=== PATIENT | male | born 1965 | race Caucasian/White ===

== ENCOUNTER 2017-05-09 15:38 | Inpatient (IN) | payer OTHER, MEDICAID ==
[~2017-05-09] VITALS: Ht 182.9 cm; Wt 60.9 kg
[~2017-05-09 15:38] MED LIST: ARFO15VI INH; ASCO500C2 PO; BACL-19 PO; BUDE10.22 INH; CEFD300C37 PO; DARI15TA3 PO; DIAZ5TAB4 PO; DOCU50LI PO; FAMO20TA7 PO; FURO20TA3 PO; HYDR-3138 PO; HYDR-3241 PO; HYDR5SYR PO; MULT-257 PO; PHEN125O11 PO; POTA10TA5 PO; PROM12.553 PO; PROM6.25 PEG; SODI4VIA INH; SULF1TAB24 PO
[2017-05-09] MEDS ORDERED: SODIUM CHLORIDE 0.9% 1,000 ML IV ONE ×3 (16:01→20:00)
[2017-05-09] MEDS ORDERED: ONDANSETRON 2MG/ML, 2ML ONE ×2 (16:11→18:16)
[2017-05-09] MEDS ORDERED: HYDROmorphone 1 MG/ML, 1ML ONE ×2 (16:11→17:51)
[2017-05-09] MEDS: HYDROmorphone 1 MG/ML, 1ML IVPush PRN ×2 (16:16→17:53)
[2017-05-09] MEDS ORDERED: SODIUM CHLORIDE 0.9% 1,000ML IVBOLUS ONE (16:30)
[2017-05-09] MEDS ORDERED: ONDANSETRON 2MG/ML, 2ML IVPush ONE (16:30)
[2017-05-09] MEDS ORDERED: SODIUM CHLORIDE FLUSH 10ML SYR IVF ONE (16:30)
[2017-05-09] MEDS ORDERED: HYDR473S47 GT (16:45)
[2017-05-09] MEDS ORDERED: BACL-19 PO (16:45)
[2017-05-09] MEDS ORDERED: TIOT18CA INH (16:45)
[2017-05-09] MEDS ORDERED: DOCU50LI GT (16:45)
[2017-05-09] MEDS ORDERED: ASCO500T8 PO (16:45)
[2017-05-09] MEDS ORDERED: FAMO-79 PO (16:45)
[2017-05-09] MEDS ORDERED: PHEN125O GT (16:45)
[2017-05-09] MEDS ORDERED: DIAZ5TAB PO (16:45)
[2017-05-09 16:48] LABS: HEMATOCRIT 31.8 % (39.2-51.8); HEMOGLOBIN 10.5 g/dL (13.7-18.0)
[2017-05-09 16:53] LABS: ASPARTATE AMINO TRANSFERASE 6 U/L (15-37); BLOOD UREA NITROGEN 14 mg/dL (7-18)
[2017-05-09] MEDS ORDERED: PROM25AM6 GT (17:19)
[2017-05-09] MEDS ORDERED: ARFO15VI INH (17:20)
[2017-05-09] MEDS ORDERED: CEFTRIAXONE PMX 1GM/50ML 50 ML IVPB ONE (17:30)
[2017-05-09] MEDS ORDERED: ACETAMINOPHEN 325 MG TABLET PO PRN ×2 (17:30→20:00)
[2017-05-09] MEDS ORDERED: SODIUM CHLORIDE FLUSH 10ML SYR IVF PRN ×2 (17:30→20:00)
[2017-05-09] MEDS ORDERED: ONDANSETRON 2MG/ML, 2ML IVPush PRN ×2 (17:30→20:00)
[2017-05-09] MEDS ORDERED: POLYETHYLENE GLYCOL 17 GM PACKET PO PRN ×2 (17:30→20:00)
[2017-05-09] MEDS ORDERED: OXYcodone IR 5MG TABLET PO PRN ×2 (17:30→20:00)
[2017-05-09] MEDS ORDERED: morphine SULFATE 10 MG/ML, 1ML IVPush PRN ×3 (17:30→20:30)
[2017-05-09] MEDS ORDERED: CEFTRIAXONE PMX 1GM/50ML 50 ML ONE (17:40)
[2017-05-09] MEDS ORDERED: SODIUM PHOSPHATE 20 MMOL in SODIUM CHLORIDE 0.9% 500 ML IV ONE (18:30)
[2017-05-09] MEDS ORDERED: MAGNESIUM SULFATE PMX 4GM/100M 100 ML IV ONE (18:30)
[2017-05-09] MEDS ORDERED: POTASSIUM PHOSPHATE 44 MEQ in SODIUM CHLORIDE 0.9% 500 ML IV ONE (19:00)
[2017-05-09 20:00] VITALS: BP 101/63
[2017-05-09] MEDS: HYDROmorphone 2 MG/ML, 1ML IVPush PRN (20:25)
[2017-05-09] MEDS: NS + 40MEQ KCL 1,000 ML IV SCH (20:56)
[2017-05-09] MEDS: MEROPENEM 1 GM in SODIUM CHLORIDE 0.9% 100 ML IV SCH (20:58)
[2017-05-09] MEDS ORDERED: HYDROcodone/APAP 7.5-325MG/15ML UDC GT SCH ×2 (21:00)
[2017-05-09] MEDS ORDERED: PROMETHAZINE 25 MG/ML, 1ML IM SCH (21:00)
[2017-05-09] MEDS ORDERED: FAMOTIDINE 20 MG TABLET PO SCH (21:00)
[2017-05-09] MEDS ORDERED: DIAZEPAM 5 MG TABLET PO SCH ×2 (21:00)
[2017-05-09] MEDS ORDERED: DIAZEPAM 5 MG/ML, 2ML IV SCH (21:00)
[2017-05-09] MEDS ORDERED: DIAZEPAM 5 MG/ML, 10ML VIAL IV SCH (21:00)
[2017-05-09] MEDS: IPRATROPIUM 0.5 MG/2.5 ML INHA NPPB SCH (21:01)
[2017-05-09] MEDS: DIAZEPAM 5 MG/ML, 2ML IV SCH (21:22)
[2017-05-09] MEDS: FAMOTIDINE 20 MG/2 ML IVPush SCH (21:32)
[2017-05-09] MEDS: MICAFUNGIN 100 MG in SODIUM CHLORIDE 0.9% 100 ML IV SCH (21:41)
[2017-05-09] MEDS: PROMETHAZINE 25 MG/ML, 1ML IM SCH (22:23)
[2017-05-09] MEDS: BACLOFEN 10 MG TABLET PO SCH (22:24)
[2017-05-10] MEDS: HYDROmorphone 2 MG/ML, 1ML IVPush PRN ×6 (00:11→18:34)
[2017-05-10] MEDS: IPRATROPIUM 0.5 MG/2.5 ML INHA NPPB SCH ×2 (01:52→08:00)
[2017-05-10 04:00] VITALS: BP 94/51
[2017-05-10 04:14] LABS: HEMATOCRIT 29.4 % (39.2-51.8); HEMOGLOBIN 9.6 g/dL (13.7-18.0); WHITE BLOOD COUNT 26.6 x10^3/uL (3.4-10)
[2017-05-10] MEDS: MEROPENEM 1 GM in SODIUM CHLORIDE 0.9% 100 ML IV SCH ×3 (04:20→20:39)
[2017-05-10 04:27] LABS: BLOOD UREA NITROGEN 9 mg/dL (7-18)
[2017-05-10 04:37] LABS: ASPARTATE AMINO TRANSFERASE 8 U/L (15-37)
[2017-05-10] MEDS: ARFORMOTEROL TARTRATE 15 MCG INH SCH (05:51)
[2017-05-10] MEDS: NS + 40MEQ KCL 1,000 ML IV SCH ×2 (06:06→14:57)
[2017-05-10] MEDS: PROMETHAZINE 25 MG/ML, 1ML IM SCH ×4 (06:09→21:00)
[2017-05-10] MEDS ORDERED: POTASSIUM CHLORIDE 10% 40 MEQ/30 ML UDC PO ONE (07:30)
[2017-05-10] MEDS ORDERED: PHENYTOIN 125 MG/5 ML ORAL SUSP GT SCH (09:00)
[2017-05-10] MEDS ORDERED: ASCORBIC ACID 500 MG TABLET PO SCH (09:00)
[2017-05-10] MEDS ORDERED: DOCUSATE 50 MG/5 ML, 10ML UDC GT SCH (09:00)
[2017-05-10] MEDS ORDERED: SENNA/DOCUSATE TABLET PO SCH (09:00)
[2017-05-10] MEDS ORDERED: IPRATROPIUM 0.5 MG/2.5 ML INHA NPPB SCH (09:00)
[2017-05-10] MEDS: DOCUSATE 50 MG/5 ML, 10ML UDC GT SCH (10:04)
[2017-05-10] MEDS: FAMOTIDINE 20 MG/2 ML IVPush SCH ×2 (10:04→21:28)
[2017-05-10] MEDS: BACLOFEN 10 MG TABLET PO SCH ×3 (10:04→21:28)
[2017-05-10] MEDS: ASCORBIC ACID 500 MG TABLET PO SCH (10:04)
[2017-05-10] MEDS: PHENYTOIN 125 MG/5 ML ORAL SUSP GT SCH (10:04)
[2017-05-10] MEDS: SENNA/DOCUSATE TABLET PO SCH (10:04)
[2017-05-10] MEDS: DIAZEPAM 5 MG/ML, 2ML IV SCH (10:06)
[2017-05-10] MEDS: HEPARIN 5,000 UNITS/ML, 1ML SQ SCH ×2 (10:07→18:34)
[2017-05-10] MEDS: DIAZEPAM 5 MG TABLET PO PRN (14:57)
[2017-05-10] MEDS: MICAFUNGIN 100 MG in SODIUM CHLORIDE 0.9% 100 ML IV SCH (21:28)
[2017-05-11] MEDS: NS + 40MEQ KCL 1,000 ML IV SCH ×2 (00:13→07:30)
[2017-05-11] MEDS: HYDROmorphone 2 MG/ML, 1ML IVPush PRN ×7 (00:16→21:26)
[2017-05-11] MEDS: IPRATROPIUM 0.5 MG/2.5 ML INHA NPPB PRN ×2 (00:38→08:12)
[2017-05-11] MEDS: HEPARIN 5,000 UNITS/ML, 1ML SQ SCH ×3 (02:08→18:07)
[2017-05-11 04:00] VITALS: BP 96/55
[2017-05-11] MEDS: MEROPENEM 1 GM in SODIUM CHLORIDE 0.9% 100 ML IV SCH ×3 (04:37→20:27)
[2017-05-11 05:04] LABS: HEMATOCRIT 28.9 % (39.2-51.8); HEMOGLOBIN 9.4 g/dL (13.7-18.0); WHITE BLOOD COUNT 19.7 x10^3/uL (3.4-10)
[2017-05-11 05:12] LABS: BLOOD UREA NITROGEN 7 mg/dL (7-18)
[2017-05-11] MEDS: PROMETHAZINE 25 MG/ML, 1ML IM SCH ×4 (05:51→21:00)
[2017-05-11] MEDS: HYDROcodone/APAP 7.5-325MG/15ML UDC NG PRN (08:40)
[2017-05-11] MEDS: ASCORBIC ACID 500 MG TABLET PO SCH (08:41)
[2017-05-11] MEDS: PHENYTOIN 125 MG/5 ML ORAL SUSP GT SCH (08:41)
[2017-05-11] MEDS: FAMOTIDINE 20 MG/2 ML IVPush SCH ×2 (08:41→21:26)
[2017-05-11] MEDS: SENNA/DOCUSATE TABLET PO SCH (08:41)
[2017-05-11] MEDS: BACLOFEN 10 MG TABLET PO SCH ×3 (08:41→21:26)
[2017-05-11] MEDS: DOCUSATE 50 MG/5 ML, 10ML UDC GT SCH (08:41)
[2017-05-11] MEDS: ARFORMOTEROL TARTRATE 15 MCG INH SCH (09:00)
[2017-05-11] MEDS ORDERED: SODIUM CHLORIDE 0.9%, 500ML IVBOLUS ONE ×3 (14:30→17:00)
[2017-05-11] MEDS: DIAZEPAM 5 MG TABLET PO PRN (14:58)
[2017-05-11] MEDS ORDERED: SODIUM CHLORIDE 0.9% 1,000 ML IV SCH (17:00)
[2017-05-11] MEDS: SODIUM CHLORIDE 0.9% 1,000 ML IV SCH (17:03)
[2017-05-11] MEDS: MICAFUNGIN 100 MG in SODIUM CHLORIDE 0.9% 100 ML IV SCH (21:25)
[2017-05-12] MEDS: HYDROmorphone 2 MG/ML, 1ML IVPush PRN ×7 (00:30→20:13)
[2017-05-12] MEDS: HEPARIN 5,000 UNITS/ML, 1ML SQ SCH ×3 (02:02→19:16)
[2017-05-12 04:00] VITALS: BP 104/57
[2017-05-12 04:21] LABS: HEMATOCRIT 28.4 % (39.2-51.8); HEMOGLOBIN 9.3 g/dL (13.7-18.0); WHITE BLOOD COUNT 12.3 x10^3/uL (3.4-10)
[2017-05-12 04:34] LABS: BLOOD UREA NITROGEN 5 mg/dL (7-18)
[2017-05-12] MEDS: MEROPENEM 1 GM in SODIUM CHLORIDE 0.9% 100 ML IV SCH ×2 (04:35→12:57)
[2017-05-12] MEDS: PROMETHAZINE 25 MG/ML, 1ML IM SCH ×4 (06:00→21:00)
[2017-05-12] MEDS: SODIUM CHLORIDE 0.9% 1,000 ML IV SCH ×2 (09:02→21:53)
[2017-05-12] MEDS: ARFORMOTEROL TARTRATE 15 MCG INH SCH (10:00)
[2017-05-12] MEDS: IPRATROPIUM 0.5 MG/2.5 ML INHA NPPB PRN ×2 (10:20→14:00)
[2017-05-12] MEDS: FAMOTIDINE 20 MG/2 ML IVPush SCH ×2 (10:33→21:51)
[2017-05-12] MEDS: ASCORBIC ACID 500 MG TABLET PO SCH (10:33)
[2017-05-12] MEDS: SENNA/DOCUSATE TABLET PO SCH (10:34)
[2017-05-12] MEDS: DOCUSATE 50 MG/5 ML, 10ML UDC GT SCH (10:34)
[2017-05-12] MEDS: PHENYTOIN 125 MG/5 ML ORAL SUSP GT SCH (10:34)
[2017-05-12] MEDS: BACLOFEN 10 MG TABLET PO SCH ×3 (10:34→21:51)
[2017-05-12] MEDS: CEFTRIAXONE PMX 1GM/50ML 50 ML IV SCH (16:54)
[2017-05-13] MEDS: HYDROmorphone 2 MG/ML, 1ML IVPush PRN (00:21)
[2017-05-13] MEDS: HEPARIN 5,000 UNITS/ML, 1ML SQ SCH ×3 (01:55→17:20)
[2017-05-13] MEDS: PROMETHAZINE 25 MG/ML, 1ML IM SCH ×4 (05:07→20:37)
[2017-05-13] MEDS: ARFORMOTEROL TARTRATE 15 MCG INH SCH ×2 (07:00→09:00)
[2017-05-13] MEDS: PHENYTOIN 125 MG/5 ML ORAL SUSP GT SCH (09:19)
[2017-05-13] MEDS: FLUCONAZOLE 40 MG/ML ORAL SUSP PO SCH (09:19)
[2017-05-13] MEDS: DOCUSATE 50 MG/5 ML, 10ML UDC GT SCH (09:19)
[2017-05-13] MEDS: ASCORBIC ACID 500 MG TABLET PO SCH (09:20)
[2017-05-13] MEDS: SENNA/DOCUSATE TABLET PO SCH (09:20)
[2017-05-13] MEDS: BACLOFEN 10 MG TABLET PO SCH ×3 (09:20→20:41)
[2017-05-13] MEDS: FAMOTIDINE 20 MG/2 ML IVPush SCH ×2 (09:20→20:41)
[2017-05-13] MEDS: SODIUM CHLORIDE 0.9% 1,000 ML IV SCH (09:24)
[2017-05-13] MEDS: HYDROcodone/APAP 7.5-325MG/15ML UDC NG PRN ×2 (09:47→21:30)
[2017-05-13 10:00] LABS: HEMATOCRIT 28.5 % (39.2-51.8); HEMOGLOBIN 9.4 g/dL (13.7-18.0); WHITE BLOOD COUNT 10.5 x10^3/uL (3.4-10)
[2017-05-13] MEDS: CEFTRIAXONE PMX 1GM/50ML 50 ML IV SCH (17:26)
[2017-05-14] MEDS: SODIUM CHLORIDE 0.9% 1,000 ML IV SCH ×2 (00:43→13:44)
[2017-05-14] MEDS: HEPARIN 5,000 UNITS/ML, 1ML SQ SCH ×3 (02:25→18:07)
[2017-05-14 04:31] LABS: HEMOGLOBIN 9.9 g/dL (13.7-18.0); WHITE BLOOD COUNT 10.1 x10^3/uL (3.4-10)
[2017-05-14 04:48] LABS: ASPARTATE AMINO TRANSFERASE 9 U/L (15-37); BLOOD UREA NITROGEN 7 mg/dL (7-18)
[2017-05-14] MEDS: PROMETHAZINE 25 MG/ML, 1ML IM SCH ×4 (06:00→20:09)
[2017-05-14] MEDS: SENNA/DOCUSATE TABLET PO SCH (08:04)
[2017-05-14] MEDS: PHENYTOIN 125 MG/5 ML ORAL SUSP GT SCH (09:22)
[2017-05-14] MEDS: DOCUSATE 50 MG/5 ML, 10ML UDC GT SCH (09:22)
[2017-05-14] MEDS: ASCORBIC ACID 500 MG TABLET PO SCH (09:23)
[2017-05-14] MEDS: BACLOFEN 10 MG TABLET PO SCH ×3 (09:23→20:09)
[2017-05-14] MEDS: FAMOTIDINE 20 MG/2 ML IVPush SCH ×2 (09:23→20:09)
[2017-05-14] MEDS: FLUCONAZOLE 40 MG/ML ORAL SUSP PO SCH (09:23)
[2017-05-14] MEDS: HYDROcodone/APAP 7.5-325MG/15ML UDC NG PRN ×3 (09:27→20:09)
[2017-05-14] MEDS: CEFTRIAXONE PMX 1GM/50ML 50 ML IV SCH (16:15)
[2017-05-14] MEDS: ARFORMOTEROL TARTRATE 15 MCG INH SCH (18:50)
[2017-05-15] MEDS: SODIUM CHLORIDE 0.9% 1,000 ML IV SCH ×2 (01:32→12:23)
[2017-05-15] MEDS: HYDROcodone/APAP 7.5-325MG/15ML UDC NG PRN ×4 (01:32→19:45)
[2017-05-15] MEDS: HEPARIN 5,000 UNITS/ML, 1ML SQ SCH ×3 (01:32→18:08)
[2017-05-15 04:32] LABS: HEMATOCRIT 28.2 % (39.2-51.8); HEMOGLOBIN 9.1 g/dL (13.7-18.0); WHITE BLOOD COUNT 8.9 x10^3/uL (3.4-10)
[2017-05-15 04:45] LABS: ASPARTATE AMINO TRANSFERASE 7 U/L (15-37); BLOOD UREA NITROGEN 13 mg/dL (7-18)
[2017-05-15] MEDS: PROMETHAZINE 25 MG/ML, 1ML IM SCH ×4 (05:54→21:01)
[2017-05-15] MEDS: ARFORMOTEROL TARTRATE 15 MCG INH SCH (06:43)
[2017-05-15] MEDS: BACLOFEN 10 MG TABLET PO SCH ×3 (09:12→21:06)
[2017-05-15] MEDS: FAMOTIDINE 20 MG/2 ML IVPush SCH ×2 (09:12→21:06)
[2017-05-15] MEDS: PHENYTOIN 125 MG/5 ML ORAL SUSP GT SCH (09:13)
[2017-05-15] MEDS: FLUCONAZOLE 40 MG/ML ORAL SUSP PO SCH (09:13)
[2017-05-15] MEDS: ASCORBIC ACID 500 MG TABLET PO SCH (09:14)
[2017-05-15] MEDS: SENNA/DOCUSATE TABLET PO SCH (09:14)
[2017-05-15] MEDS: DOCUSATE 50 MG/5 ML, 10ML UDC GT SCH (09:14)
[2017-05-15] MEDS: DIAZEPAM 5 MG TABLET PO PRN ×2 (12:50→22:09)
[2017-05-15] MEDS: CEFTRIAXONE PMX 1GM/50ML 50 ML IV SCH (18:06)
[2017-05-16] MEDS: HYDROcodone/APAP 7.5-325MG/15ML UDC NG PRN ×4 (00:15→20:06)
[2017-05-16] MEDS: HEPARIN 5,000 UNITS/ML, 1ML SQ SCH ×3 (02:12→16:48)
[2017-05-16] MEDS: HYDROmorphone 2 MG/ML, 1ML IVPush PRN ×3 (03:26→22:41)
[2017-05-16 06:15] LABS: HEMOGLOBIN 9.6 g/dL (13.7-18.0); WHITE BLOOD COUNT 10.7 x10^3/uL (3.4-10)
[2017-05-16] MEDS: PROMETHAZINE 25 MG/ML, 1ML IM SCH (06:22)
[2017-05-16 06:31] LABS: BLOOD UREA NITROGEN 11 mg/dL (7-18)
[2017-05-16] MEDS: FAMOTIDINE 20 MG/2 ML IVPush SCH ×2 (07:52→20:46)
[2017-05-16] MEDS: FLUCONAZOLE 40 MG/ML ORAL SUSP PO SCH (07:52)
[2017-05-16] MEDS: ASCORBIC ACID 500 MG TABLET PO SCH (07:53)
[2017-05-16] MEDS: PHENYTOIN 125 MG/5 ML ORAL SUSP GT SCH (07:53)
[2017-05-16] MEDS: BACLOFEN 10 MG TABLET PO SCH ×3 (07:53→20:46)
[2017-05-16] MEDS: DOCUSATE 50 MG/5 ML, 10ML UDC GT SCH (07:54)
[2017-05-16] MEDS: SENNA/DOCUSATE TABLET PO SCH (07:54)
[2017-05-16] MEDS: SODIUM CHLORIDE 0.9% 1,000 ML IV SCH (08:04)
[2017-05-16] MEDS ORDERED: PROMETHAZINE 25 MG/ML, 1ML IM PRN ×2 (08:30→16:00)
[2017-05-16] MEDS: ARFORMOTEROL TARTRATE 15 MCG INH SCH (09:00)
[2017-05-16] MEDS: CEFTRIAXONE PMX 1GM/50ML 50 ML IV SCH (15:47)
[2017-05-16] MEDS: DIAZEPAM 5 MG TABLET PO PRN (15:54)
[2017-05-16] MEDS ORDERED: SODIUM CHLORIDE 0.9% 1,000 ML IV SCH (16:00)
[2017-05-16] MEDS ORDERED: ACETAMINOPHEN 325 MG TABLET PO PRN (16:00)
[2017-05-16] MEDS ORDERED: morphine SULFATE 10 MG/ML, 1ML IVPush PRN (16:00)
[2017-05-16] MEDS ORDERED: ONDANSETRON 2MG/ML, 2ML IVPush PRN (16:00)
[2017-05-16] MEDS ORDERED: OXYcodone IR 5MG TABLET PO PRN (16:00)
[2017-05-17] MEDS: HEPARIN 5,000 UNITS/ML, 1ML SQ SCH ×3 (02:08→17:10)
[2017-05-17] MEDS: HYDROcodone/APAP 7.5-325MG/15ML UDC NG PRN ×3 (02:19→14:34)
[2017-05-17] MEDS: HYDROmorphone 2 MG/ML, 1ML IVPush PRN ×4 (03:48→21:03)
[2017-05-17 05:18] LABS: HEMATOCRIT 29.3 % (39.2-51.8); HEMOGLOBIN 9.6 g/dL (13.7-18.0); WHITE BLOOD COUNT 11.9 x10^3/uL (3.4-10)
[2017-05-17 05:37] LABS: BLOOD UREA NITROGEN 15 mg/dL (7-18)
[2017-05-17] MEDS: FAMOTIDINE 20 MG/2 ML IVPush SCH (08:04)
[2017-05-17] MEDS: FLUCONAZOLE 40 MG/ML ORAL SUSP PO SCH (08:04)
[2017-05-17] MEDS: BACLOFEN 10 MG TABLET PO SCH ×3 (08:04→21:43)
[2017-05-17] MEDS: ASCORBIC ACID 500 MG TABLET PO SCH (08:04)
[2017-05-17] MEDS: DOCUSATE 50 MG/5 ML, 10ML UDC GT SCH (08:04)
[2017-05-17] MEDS: PHENYTOIN 125 MG/5 ML ORAL SUSP GT SCH (08:04)
[2017-05-17] MEDS: SENNA/DOCUSATE TABLET PO SCH (08:05)
[2017-05-17] MEDS: ARFORMOTEROL TARTRATE 15 MCG INH SCH ×2 (08:45→19:45)
[2017-05-17] MEDS: FUROSEMIDE 40 MG/4 ML IV SCH ×2 (10:39→21:03)
[2017-05-17] MEDS: CEFTRIAXONE PMX 1GM/50ML 50 ML IV SCH (16:42)
[2017-05-17] MEDS: FAMOTIDINE 40 MG/5 ML ORAL SUSP PO SCH (21:03)
[2017-05-18] MEDS: HYDROmorphone 2 MG/ML, 1ML IVPush PRN ×2 (00:58→05:01)
[2017-05-18] MEDS: HEPARIN 5,000 UNITS/ML, 1ML SQ SCH ×3 (01:00→21:06)
[2017-05-18 06:11] LABS: HEMOGLOBIN 10.4 g/dL (13.7-18.0); WHITE BLOOD COUNT 13.6 x10^3/uL (3.4-10)
[2017-05-18 06:25] LABS: ASPARTATE AMINO TRANSFERASE 16 U/L (15-37); BLOOD UREA NITROGEN 16 mg/dL (7-18)
[2017-05-18] MEDS ORDERED: SODIUM CHLORIDE NASAL SPRAY 45ML BOTTLE NAS PRN (08:30)
[2017-05-18] MEDS: FUROSEMIDE 40 MG/4 ML IV SCH ×2 (09:10→21:07)
[2017-05-18] MEDS: METHYLNALTREXONE 12 MG/0.6 ML SQ SCH (09:12)
[2017-05-18] MEDS: BACLOFEN 10 MG TABLET PO SCH ×3 (09:29→21:06)
[2017-05-18] MEDS: ASCORBIC ACID 500 MG TABLET PO SCH (09:29)
[2017-05-18] MEDS: FLUCONAZOLE 40 MG/ML ORAL SUSP PO SCH (09:30)
[2017-05-18] MEDS: FAMOTIDINE 40 MG/5 ML ORAL SUSP PO SCH ×2 (09:30→21:06)
[2017-05-18] MEDS: PHENYTOIN 125 MG/5 ML ORAL SUSP GT SCH (09:30)
[2017-05-18] MEDS: DOCUSATE 50 MG/5 ML, 10ML UDC GT SCH (09:30)
[2017-05-18] MEDS: SENNA/DOCUSATE TABLET PO SCH (09:32)
[2017-05-18] MEDS: HYDROcodone/APAP 7.5-325MG/15ML UDC NG PRN ×2 (09:35→21:06)
[2017-05-18] MEDS: ARFORMOTEROL TARTRATE 15 MCG INH SCH ×2 (11:20→21:05)
[2017-05-18] MEDS: IPRATROPIUM 0.5 MG/2.5 ML INHA NPPB PRN ×2 (12:00→16:16)
[2017-05-18] MEDS: CEFTRIAXONE PMX 1GM/50ML 50 ML IV SCH (16:14)
[2017-05-19] MEDS: HEPARIN 5,000 UNITS/ML, 1ML SQ SCH ×3 (05:03→20:31)
[2017-05-19] MEDS: IPRATROPIUM 0.5 MG/2.5 ML INHA NPPB PRN ×2 (07:10→12:40)
[2017-05-19] MEDS: FAMOTIDINE 40 MG/5 ML ORAL SUSP PO SCH ×2 (07:42→20:31)
[2017-05-19] MEDS: FLUCONAZOLE 40 MG/ML ORAL SUSP PO SCH (07:42)
[2017-05-19] MEDS: SENNA/DOCUSATE TABLET PO SCH (07:42)
[2017-05-19] MEDS: BACLOFEN 10 MG TABLET PO SCH ×3 (07:42→20:32)
[2017-05-19] MEDS: ASCORBIC ACID 500 MG TABLET PO SCH (07:43)
[2017-05-19] MEDS: PHENYTOIN 125 MG/5 ML ORAL SUSP GT SCH (07:43)
[2017-05-19] MEDS: METHYLNALTREXONE 12 MG/0.6 ML SQ SCH (07:43)
[2017-05-19] MEDS: DOCUSATE 50 MG/5 ML, 10ML UDC GT SCH (07:43)
[2017-05-19] MEDS: ARFORMOTEROL TARTRATE 15 MCG INH SCH ×2 (07:46→18:00)
[2017-05-19] MEDS: HYDROcodone/APAP 7.5-325MG/15ML UDC NG PRN ×3 (07:54→20:32)
[2017-05-19] MEDS: DIAZEPAM 5 MG TABLET PO PRN (12:03)
[2017-05-19] MEDS: CEFTRIAXONE PMX 1GM/50ML 50 ML IV SCH (15:41)
[2017-05-20] MEDS: HYDROcodone/APAP 7.5-325MG/15ML UDC NG PRN ×3 (02:55→19:30)
[2017-05-20] MEDS: HEPARIN 5,000 UNITS/ML, 1ML SQ SCH ×3 (05:46→20:18)
[2017-05-20] MEDS: DIAZEPAM 5 MG TABLET PO PRN (05:46)
[2017-05-20] MEDS: DOCUSATE 50 MG/5 ML, 10ML UDC GT SCH (07:52)
[2017-05-20] MEDS: BACLOFEN 10 MG TABLET PO SCH ×3 (07:52→20:18)
[2017-05-20] MEDS: FAMOTIDINE 40 MG/5 ML ORAL SUSP PO SCH ×2 (07:52→20:19)
[2017-05-20] MEDS: FLUCONAZOLE 40 MG/ML ORAL SUSP PO SCH (07:52)
[2017-05-20] MEDS: PHENYTOIN 125 MG/5 ML ORAL SUSP GT SCH (07:52)
[2017-05-20] MEDS: SENNA/DOCUSATE TABLET PO SCH (07:53)
[2017-05-20] MEDS: ASCORBIC ACID 500 MG TABLET PO SCH (07:53)
[2017-05-20] MEDS: METHYLNALTREXONE 12 MG/0.6 ML SQ SCH (07:54)
[2017-05-20 08:42] LABS: HEMATOCRIT 32.5 % (39.2-51.8); HEMOGLOBIN 10.6 g/dL (13.7-18.0); WHITE BLOOD COUNT 12.5 x10^3/uL (3.4-10)
[2017-05-20 08:55] LABS: BLOOD UREA NITROGEN 25 mg/dL (7-18)
[2017-05-20] MEDS: ARFORMOTEROL TARTRATE 15 MCG INH SCH ×2 (09:00→21:00)
[2017-05-20] MEDS: CEFTRIAXONE PMX 1GM/50ML 50 ML IV SCH (17:01)
[2017-05-21] MEDS: HYDROcodone/APAP 7.5-325MG/15ML UDC NG PRN ×2 (01:46→08:40)
[2017-05-21] MEDS: HEPARIN 5,000 UNITS/ML, 1ML SQ SCH ×2 (04:58→13:00)
[2017-05-21] MEDS: ARFORMOTEROL TARTRATE 15 MCG INH SCH (09:00)
[2017-05-21] MEDS ORDERED: CEFD250S26 PO (09:49)
[2017-05-21] MEDS: FAMOTIDINE 40 MG/5 ML ORAL SUSP PO SCH (10:49)
[2017-05-21] MEDS: DOCUSATE 50 MG/5 ML, 10ML UDC GT SCH (10:49)
[2017-05-21] MEDS: FLUCONAZOLE 40 MG/ML ORAL SUSP PO SCH (10:50)
[2017-05-21] MEDS: BACLOFEN 10 MG TABLET PO SCH (10:50)
[2017-05-21] MEDS: ASCORBIC ACID 500 MG TABLET PO SCH (10:50)
[2017-05-21] MEDS: SENNA/DOCUSATE TABLET PO SCH (10:50)
[2017-05-21] MEDS: PHENYTOIN 125 MG/5 ML ORAL SUSP GT SCH (10:51)
== END 2017-05-21 13:17 | disposition home or self-care (01) | DRG 870 ==
LOC: MERGE 15:38 → ED 18:00 → EDIP 18:30 → CCU 19:33
PROVIDERS: ADMIT Internal Medicine; ATTEND Internal Medicine
PROC: 5A1955Z Respiratory Ventilation, Greater than 96 Consecutive Hours (ICD-10-PCS; principal; 2017-05-13)
PROC: 0T9B70Z Drainage of Bladder with Drainage Device, Via Natural or Artificial Opening (ICD-10-PCS; 2017-05-13)
DX: A41.9 Sepsis, unspecified organism (principal); J96.20 Acute and chronic respiratory failure, unspecified whether with hypoxia or hypercapnia; E43 Unspecified severe protein-calorie malnutrition; Z99.11 Dependence on respirator [ventilator] status; J15.9 Unspecified bacterial pneumonia; J44.0 Chronic obstructive pulmonary disease with (acute) lower respiratory infection; G82.50 Quadriplegia, unspecified; Z93.0 Tracheostomy status; N39.0 Urinary tract infection, site not specified; E87.1 Hypo-osmolality and hyponatremia; J98.11 Atelectasis; Z68.1 Body mass index [BMI] 19.9 or less, adult; E87.6 Hypokalemia; Z93.3 Colostomy status; Z88.6 Allergy status to analgesic agent; Z88.8 Allergy status to other drugs, medicaments and biological substances; G40.909 Epilepsy, unspecified, not intractable, without status epilepticus; K59.00 Constipation, unspecified; W34.00XA Accidental discharge from unspecified firearms or gun, initial encounter; Z16.24 Resistance to multiple antibiotics; Z82.49 Family history of ischemic heart disease and other diseases of the circulatory system
CPT/HCPCS: 36415; 71010; 74022; 80048; 80053; 80061; 80185; 81001; 83605; 83690; 83735; 84100; 84443; 84484; 85025; 87040; 87077; 87081; 87086; 87106; 87186; 94002; 94003; 94640; 96361; 96365; 96375; 96376; J0696; J1170; J1644; J1940; J2185; J2248; J2405; J2550; J3360; J7644; J3475; J3480; J7030; J7040; S0028

== ENCOUNTER 2017-10-05 14:47 | Inpatient (IN) | payer OTHER, MEDICAID ==
[~2017-10-05] VITALS: Ht 182.9 cm; Wt 65.2 kg
[~2017-10-05 14:47] MED LIST changes: +ASCO500T8 PO; +CEFD250S26 PO; +DIAZ5TAB PO; -DOCU50LI PO; +DOCU50LI17 GT; +DOCU50LI17 PO; +FAMO-79 PO; -HYDR-3138 PO; +HYDR-3237 PO; +HYDR473S47 GT; +PHEN125O GT; +PROM25AM6 GT; +TIOT18CA INH
[2017-10-05] MEDS ORDERED: SODIUM CHLORIDE 0.9% 1,000ML IVBOLUS ONE (15:00)
[2017-10-05] MEDS ORDERED: SODIUM CHLORIDE FLUSH 10ML SYR IVF ONE (15:00)
[2017-10-05] MEDS ORDERED: MEROPENEM 1 GM in SODIUM CHLORIDE 0.9% 100 ML IV ONE (15:28)
[2017-10-05 15:46] LABS: ALANINE AMINOTRANSFERASE 11 U/L (12-78); ALBUMIN 2.7 g/dL (3.4-5.0); ANION GAP 9 mmol/L (5-15); CHLORIDE 101 mmol/L (98-107); CREATININE 0.18 mg/dL (0.7-1.3)
[2017-10-05 15:49] LABS: ALKALINE PHOSPHATASE 86 U/L (45-117); BILIRUBIN,TOTAL 0.4 mg/dL (0.2-1.0); TOTAL PROTEIN 7.1 g/dL (6.4-8.2)
[2017-10-05 16:00] LABS: BASOPHILS % (AUTO) 0 % (0-1); EOSINOPHILS # (AUTO) 0.24 x10^3/uL (0-0.4); EOSINOPHILS % (AUTO) 4 % (1-7); LYMPHOCYTES # (AUTO) 0.66 x10^3/uL (1-3.4); LYMPHOCYTES % (AUTO) 12 % (22-44); MD SCAN; MEAN CORPUSCULAR HEMOGLOBIN 30.7 pg (27.5-34.5); MEAN CORPUSCULAR HGB CONC 34.2 g/dL (33.2-36.2); MEAN CORPUSCULAR VOLUME 89.9 fL (81-97); MEAN PLATELET VOLUME 9.3 fL (7.4-10.4); MONOCYTES # (AUTO) 0.46 x10^3/uL (0.2-0.8); MONOCYTES % (AUTO) 8 % (2-9); NEUTROPHILS % (AUTO) 75 % (42-75); PLATELET COUNT 239 x10^3/uL (130-400); RED BLOOD COUNT 3.53 x10^6/uL (4.38-5.82); RED CELL DISTRIBUTION WIDTH 13.3 % (9.4-14.8)
[2017-10-05] MEDS ORDERED: MORPHINE SULFATE 4 MG/ML, 1ML IVPush ONE (16:00)
[2017-10-05] MEDS ORDERED: PLEASE ENTER HEIGHT MC SCH (16:00)
[2017-10-05 16:07] LABS: CULTURE INDICATED? YES; MICROSCOPIC INDICATED
[2017-10-05] MEDS ORDERED: HYDROmorphone 2 MG/ML, 1ML IVPush ONE (16:30)
[2017-10-05] MEDS ORDERED: SODIUM CHLORIDE 0.9%, 500ML IVBOLUS ONE (16:30)
[2017-10-05] MEDS ORDERED: HYDROmorphone 2 MG/ML, 1ML ONE (16:57)
[2017-10-05] MEDS: MEROPENEM 1 GM in SODIUM CHLORIDE 0.9% 100 ML IV SCH (18:30)
[2017-10-05] MEDS ORDERED: ACETAMINOPHEN 325 MG TABLET PO PRN (18:30)
[2017-10-05 18:46] VITALS: BP 111/66
[2017-10-05] MEDS ORDERED: ENOXAPARIN 40 MG/0.4 ML ONE (18:51)
[2017-10-05] MEDS: ENOXAPARIN 40 MG/0.4 ML SQ SCH (19:04)
[2017-10-05] MEDS ORDERED: ONDA4TAB7 PO (19:22)
[2017-10-05] MEDS ORDERED: METR500T PO (19:22)
[2017-10-05] MEDS ORDERED: FAMOTIDINE 20 MG TABLET PO SCH (21:00)
[2017-10-05] MEDS ORDERED: ALBUTEROL SULFATE 2.5 MG/3 ML NPPB PRN (21:00)
[2017-10-05] MEDS: HYDROmorphone 2 MG/ML, 1ML IVPush PRN (22:06)
[2017-10-05] MEDS: HYDROcodone/APAP 7.5-325MG/15ML UDC PO PRN (23:30)
[2017-10-06] MEDS ORDERED: ONDANSETRON 4 MG TABLET PO PRN (01:00)
[2017-10-06] MEDS: MICAFUNGIN 100 MG in SODIUM CHLORIDE 0.9% 100 ML IV SCH (01:56)
[2017-10-06] MEDS: HYDROmorphone 2 MG/ML, 1ML IVPush PRN ×5 (02:29→22:16)
[2017-10-06] MEDS: MEROPENEM 1 GM in SODIUM CHLORIDE 0.9% 100 ML IV SCH ×3 (02:29→18:13)
[2017-10-06] MEDS: DIAZEPAM 5 MG TABLET PO PRN (03:54)
[2017-10-06 04:36] LABS: BASOPHILS # (AUTO) 0.03 x10^3/uL (0-0.1); BASOPHILS % (AUTO) 1 % (0-1); EOSINOPHILS # (AUTO) 0.22 x10^3/uL (0-0.4); EOSINOPHILS % (AUTO) 3 % (1-7); LYMPHOCYTES % (AUTO) 12 % (22-44); MD NO; MEAN CORPUSCULAR HEMOGLOBIN 29.7 pg (27.5-34.5); MEAN CORPUSCULAR VOLUME 89.8 fL (81-97); MEAN PLATELET VOLUME 8.1 fL (7.4-10.4); MONOCYTES # (AUTO) 0.76 x10^3/uL (0.2-0.8); MONOCYTES % (AUTO) 11 % (2-9); NEUTROPHILS # (AUTO) 4.95 x10^3/uL (1.8-6.8); NEUTROPHILS % (AUTO) 73 % (42-75); PLATELET COUNT 158 x10^3/uL (130-400); RED BLOOD COUNT 3.44 x10^6/uL (4.38-5.82); RED CELL DISTRIBUTION WIDTH 13.2 % (9.4-14.8)
[2017-10-06 04:51] LABS: ALBUMIN 2.3 g/dL (3.4-5.0); ANION GAP 3 mmol/L (5-15); CALCIUM 7.5 mg/dL (8.5-10.1); CHLORIDE 109 mmol/L (98-107)
[2017-10-06 04:55] LABS: ALANINE AMINOTRANSFERASE 16 U/L (12-78); ALKALINE PHOSPHATASE 81 U/L (45-117); BILIRUBIN,TOTAL 0.4 mg/dL (0.2-1.0); TOTAL PROTEIN 6.3 g/dL (6.4-8.2)
[2017-10-06 05:09] LABS: CREATININE < 0.15 mg/dL (0.7-1.3)
[2017-10-06] MEDS: HYDROcodone/APAP 7.5-325MG/15ML UDC PO PRN ×3 (05:50→19:16)
[2017-10-06] MEDS ORDERED: ONDANSETRON 2MG/ML, 2ML ONE (06:14)
[2017-10-06] MEDS ORDERED: ONDANSETRON ODT 4 MG ONE (06:21)
[2017-10-06] MEDS ORDERED: ONDANSETRON 2MG/ML, 2ML IVPush PRN (06:30)
[2017-10-06] MEDS ORDERED: POTASSIUM PHOSPHATE 44 MEQ in SODIUM CHLORIDE 0.9% 500 ML IV ONE (08:00)
[2017-10-06] MEDS ORDERED: MAGNESIUM SULFATE PMX 4GM/100M 100 ML IV ONE (08:00)
[2017-10-06] MEDS: DOCUSATE 50 MG/5 ML, 10ML UDC GT SCH (09:00)
[2017-10-06] MEDS ORDERED: FAMOTIDINE 20 MG TABLET PO SCH (09:00)
[2017-10-06] MEDS: BACLOFEN 10 MG TABLET PO SCH ×2 (09:17→21:26)
[2017-10-06] MEDS: PHENYTOIN 125 MG/5 ML ORAL SUSP GT SCH (09:17)
[2017-10-06] MEDS: FAMOTIDINE 40 MG/5 ML ORAL SUSP PEG SCH ×2 (09:17→21:26)
[2017-10-06] MEDS: PROMETHAZINE 25MG TABLET PO PRN ×2 (11:48→19:16)
[2017-10-06] MEDS ORDERED: ARFORMOTEROL 15 MCG NPPB SCH (14:00)
[2017-10-06] MEDS: ARFORMOTEROL 15 MCG NPPB SCH (15:40)
[2017-10-06] MEDS: ENOXAPARIN 40 MG/0.4 ML SQ SCH (18:13)
[2017-10-06] MEDS: KETOROLAC 30 MG/1 ML IVPush PRN (21:30)
[2017-10-06] MEDS: LIDODERM 5% PATCH TD SCH (21:30)
[2017-10-07] MEDS: MICAFUNGIN 100 MG in SODIUM CHLORIDE 0.9% 100 ML IV SCH (01:11)
[2017-10-07] MEDS: HYDROcodone/APAP 7.5-325MG/15ML UDC PO PRN ×4 (01:11→21:50)
[2017-10-07] MEDS: PROMETHAZINE 25MG TABLET PO PRN (01:11)
[2017-10-07] MEDS: MEROPENEM 1 GM in SODIUM CHLORIDE 0.9% 100 ML IV SCH ×3 (03:00→17:48)
[2017-10-07] MEDS: HYDROmorphone 2 MG/ML, 1ML IVPush PRN ×2 (03:05→08:41)
[2017-10-07 04:17] LABS: ALANINE AMINOTRANSFERASE 13 U/L (12-78); ALBUMIN 2.3 g/dL (3.4-5.0); ANION GAP 4 mmol/L (5-15); CALCIUM 7.5 mg/dL (8.5-10.1); CHLORIDE 108 mmol/L (98-107)
[2017-10-07 04:20] LABS: ALKALINE PHOSPHATASE 90 U/L (45-117); BILIRUBIN,TOTAL 0.2 mg/dL (0.2-1.0); TOTAL PROTEIN 6.1 g/dL (6.4-8.2)
[2017-10-07 04:39] LABS: CREATININE < 0.15 mg/dL (0.7-1.3)
[2017-10-07] MEDS: ARFORMOTEROL 15 MCG NPPB SCH ×2 (04:43→13:15)
[2017-10-07 05:35] LABS: BASOPHILS # (AUTO) 0.02 x10^3/uL (0-0.1); BASOPHILS % (AUTO) 0 % (0-1); EOSINOPHILS # (AUTO) 0.53 x10^3/uL (0-0.4); EOSINOPHILS % (AUTO) 9 % (1-7); LYMPHOCYTES # (AUTO) 0.84 x10^3/uL (1-3.4); LYMPHOCYTES % (AUTO) 15 % (22-44); MD NO; MEAN CORPUSCULAR HEMOGLOBIN 29.8 pg (27.5-34.5); MEAN CORPUSCULAR HGB CONC 32.8 g/dL (33.2-36.2); MEAN CORPUSCULAR VOLUME 90.8 fL (81-97); MEAN PLATELET VOLUME 8.2 fL (7.4-10.4); MONOCYTES # (AUTO) 0.55 x10^3/uL (0.2-0.8); MONOCYTES % (AUTO) 10 % (2-9); NEUTROPHILS # (AUTO) 3.71 x10^3/uL (1.8-6.8); NEUTROPHILS % (AUTO) 66 % (42-75); PLATELET COUNT 176 x10^3/uL (130-400); RED BLOOD COUNT 3.28 x10^6/uL (4.38-5.82); RED CELL DISTRIBUTION WIDTH 13.4 % (9.4-14.8)
[2017-10-07] MEDS: DOCUSATE 50 MG/5 ML, 10ML UDC GT SCH (08:40)
[2017-10-07] MEDS: BACLOFEN 10 MG TABLET PO SCH ×2 (08:41→21:49)
[2017-10-07] MEDS: FAMOTIDINE 40 MG/5 ML ORAL SUSP PEG SCH ×2 (08:41→21:50)
[2017-10-07] MEDS: PHENYTOIN 125 MG/5 ML ORAL SUSP GT SCH (08:41)
[2017-10-07] MEDS: KETOROLAC 30 MG/1 ML IVPush PRN (14:28)
[2017-10-07] MEDS ORDERED: ALBUTEROL SULFATE 2.5 MG/3 ML ONE (17:24)
[2017-10-07] MEDS ORDERED: ALBUTEROL SULFATE 2.5 MG/3 ML NPPB PRN (17:30)
[2017-10-07] MEDS: ENOXAPARIN 40 MG/0.4 ML SQ SCH (17:52)
[2017-10-07] MEDS: LIDODERM 5% PATCH TD SCH (20:20)
[2017-10-08] MEDS: MICAFUNGIN 100 MG in SODIUM CHLORIDE 0.9% 100 ML IV SCH (01:24)
[2017-10-08] MEDS: ARFORMOTEROL 15 MCG NPPB SCH ×3 (01:32→23:00)
[2017-10-08] MEDS: MEROPENEM 1 GM in SODIUM CHLORIDE 0.9% 100 ML IV SCH ×3 (02:45→18:12)
[2017-10-08] MEDS: HYDROcodone/APAP 7.5-325MG/15ML UDC PO PRN ×4 (04:48→23:26)
[2017-10-08] MEDS: DOCUSATE 50 MG/5 ML, 10ML UDC GT SCH (08:39)
[2017-10-08] MEDS: BACLOFEN 10 MG TABLET PO SCH ×2 (09:08→21:32)
[2017-10-08] MEDS: FAMOTIDINE 40 MG/5 ML ORAL SUSP PEG SCH ×2 (09:08→21:32)
[2017-10-08] MEDS: PHENYTOIN 125 MG/5 ML ORAL SUSP GT SCH (09:08)
[2017-10-08] MEDS: PROMETHAZINE 25MG TABLET PO PRN (10:45)
[2017-10-08] MEDS: NYSTATIN TOPICAL POWDER 15GM TP SCH ×2 (15:32→21:00)
[2017-10-08] MEDS: DIAZEPAM 5 MG TABLET PO PRN (16:56)
[2017-10-08] MEDS: ENOXAPARIN 40 MG/0.4 ML SQ SCH (18:12)
[2017-10-08] MEDS: LIDODERM 5% PATCH TD SCH (21:24)
[2017-10-09] MEDS: ARFORMOTEROL 15 MCG NPPB SCH ×3 (00:35→19:13)
[2017-10-09] MEDS: MICAFUNGIN 100 MG in SODIUM CHLORIDE 0.9% 100 ML IV SCH (01:33)
[2017-10-09] MEDS: MEROPENEM 1 GM in SODIUM CHLORIDE 0.9% 100 ML IV SCH ×3 (02:54→18:28)
[2017-10-09 04:30] LABS: ANION GAP 3 mmol/L (5-15); CALCIUM 8.1 mg/dL (8.5-10.1); CHLORIDE 105 mmol/L (98-107)
[2017-10-09 04:31] LABS: CREATININE < 0.15 mg/dL (0.7-1.3)
[2017-10-09 04:37] LABS: BASOPHILS # (AUTO) 0.04 x10^3/uL (0-0.1); BASOPHILS % (AUTO) 1 % (0-1); EOSINOPHILS # (AUTO) 0.52 x10^3/uL (0-0.4); EOSINOPHILS % (AUTO) 7 % (1-7); LYMPHOCYTES # (AUTO) 1.28 x10^3/uL (1-3.4); LYMPHOCYTES % (AUTO) 18 % (22-44); MD NO; MEAN CORPUSCULAR HEMOGLOBIN 30.4 pg (27.5-34.5); MEAN CORPUSCULAR HGB CONC 33.3 g/dL (33.2-36.2); MEAN CORPUSCULAR VOLUME 91.2 fL (81-97); MEAN PLATELET VOLUME 8.7 fL (7.4-10.4); MONOCYTES # (AUTO) 0.74 x10^3/uL (0.2-0.8); MONOCYTES % (AUTO) 10 % (2-9); NEUTROPHILS # (AUTO) 4.52 x10^3/uL (1.8-6.8); NEUTROPHILS % (AUTO) 64 % (42-75); PLATELET COUNT 209 x10^3/uL (130-400); RED BLOOD COUNT 3.48 x10^6/uL (4.38-5.82); RED CELL DISTRIBUTION WIDTH 13.9 % (9.4-14.8)
[2017-10-09] MEDS: HYDROcodone/APAP 7.5-325MG/15ML UDC PO PRN ×4 (05:25→21:22)
[2017-10-09] MEDS: DOCUSATE 50 MG/5 ML, 10ML UDC GT SCH (08:53)
[2017-10-09] MEDS: PHENYTOIN 125 MG/5 ML ORAL SUSP GT SCH (08:53)
[2017-10-09] MEDS: BACLOFEN 10 MG TABLET PO SCH ×2 (08:53→21:21)
[2017-10-09] MEDS: NYSTATIN TOPICAL POWDER 15GM TP SCH ×3 (08:54→21:00)
[2017-10-09] MEDS: FAMOTIDINE 40 MG/5 ML ORAL SUSP PEG SCH ×2 (08:54→21:21)
[2017-10-09] MEDS: DIAZEPAM 5 MG TABLET PO PRN (10:34)
[2017-10-09] MEDS ORDERED: DIAZEPAM 5 MG/ML, 10ML VIAL IV ONE (17:00)
[2017-10-09] MEDS: ENOXAPARIN 40 MG/0.4 ML SQ SCH (18:28)
[2017-10-09] MEDS: LIDODERM 5% PATCH TD SCH (21:20)
[2017-10-10] MEDS: MICAFUNGIN 100 MG in SODIUM CHLORIDE 0.9% 100 ML IV SCH (01:47)
[2017-10-10] MEDS: MEROPENEM 1 GM in SODIUM CHLORIDE 0.9% 100 ML IV SCH ×3 (03:05→18:25)
[2017-10-10] MEDS: HYDROcodone/APAP 7.5-325MG/15ML UDC PO PRN ×5 (03:36→21:40)
[2017-10-10] MEDS: ARFORMOTEROL 15 MCG NPPB SCH ×4 (04:20→21:00)
[2017-10-10] MEDS: FAMOTIDINE 40 MG/5 ML ORAL SUSP PEG SCH ×2 (08:54→20:58)
[2017-10-10] MEDS: PHENYTOIN 125 MG/5 ML ORAL SUSP GT SCH (08:54)
[2017-10-10] MEDS: BACLOFEN 10 MG TABLET PO SCH ×2 (08:54→20:58)
[2017-10-10] MEDS: DOCUSATE 50 MG/5 ML, 10ML UDC GT SCH (08:55)
[2017-10-10] MEDS: NYSTATIN TOPICAL POWDER 15GM TP SCH ×3 (09:00→20:58)
[2017-10-10] MEDS: DIAZEPAM 5 MG TABLET PO PRN (13:34)
[2017-10-10] MEDS: PROMETHAZINE 25MG TABLET PO PRN (17:29)
[2017-10-10] MEDS: ENOXAPARIN 40 MG/0.4 ML SQ SCH (18:25)
[2017-10-10] MEDS: LIDODERM 5% PATCH TD SCH (20:58)
[2017-10-11] MEDS: MEROPENEM 1 GM in SODIUM CHLORIDE 0.9% 100 ML IV SCH ×3 (02:48→18:31)
[2017-10-11] MEDS: HYDROcodone/APAP 7.5-325MG/15ML UDC PO PRN ×3 (04:03→16:00)
[2017-10-11] MEDS: ARFORMOTEROL 15 MCG NPPB SCH ×2 (06:04→21:00)
[2017-10-11] MEDS: NYSTATIN TOPICAL POWDER 15GM TP SCH ×3 (09:00→21:00)
[2017-10-11] MEDS: PROMETHAZINE 25MG TABLET PO PRN (09:54)
[2017-10-11] MEDS: DOCUSATE 50 MG/5 ML, 10ML UDC GT SCH (10:12)
[2017-10-11] MEDS: PHENYTOIN 125 MG/5 ML ORAL SUSP GT SCH (10:12)
[2017-10-11] MEDS: FAMOTIDINE 40 MG/5 ML ORAL SUSP PEG SCH ×2 (10:12→21:01)
[2017-10-11] MEDS: BACLOFEN 10 MG TABLET PO SCH ×2 (10:13→21:01)
[2017-10-11] MEDS ORDERED: PROMETHAZINE 6.25 MG/5 ML HOMEMEDPO PRN (13:00)
[2017-10-11] MEDS: DIAZEPAM 5 MG TABLET PO PRN (16:00)
[2017-10-11] MEDS: ENOXAPARIN 40 MG/0.4 ML SQ SCH (18:39)
[2017-10-11] MEDS: LIDODERM 5% PATCH TD SCH (21:02)
[2017-10-11] MEDS: POLYETHYLENE GLYCOL 17 GM PACKET NG PRN (21:26)
[2017-10-12] MEDS: MEROPENEM 1 GM in SODIUM CHLORIDE 0.9% 100 ML IV SCH ×3 (02:30→18:07)
[2017-10-12 04:39] LABS: BASOPHILS # (AUTO) 0.03 x10^3/uL (0-0.1); BASOPHILS % (AUTO) 1 % (0-1); EOSINOPHILS # (AUTO) 0.45 x10^3/uL (0-0.4); EOSINOPHILS % (AUTO) 7 % (1-7); LYMPHOCYTES # (AUTO) 0.96 x10^3/uL (1-3.4); LYMPHOCYTES % (AUTO) 15 % (22-44); MD NO; MEAN CORPUSCULAR HEMOGLOBIN 30.2 pg (27.5-34.5); MEAN CORPUSCULAR HGB CONC 33.4 g/dL (33.2-36.2); MEAN CORPUSCULAR VOLUME 90.5 fL (81-97); MEAN PLATELET VOLUME 8.1 fL (7.4-10.4); MONOCYTES # (AUTO) 0.72 x10^3/uL (0.2-0.8); MONOCYTES % (AUTO) 12 % (2-9); NEUTROPHILS # (AUTO) 4.07 x10^3/uL (1.8-6.8); NEUTROPHILS % (AUTO) 65 % (42-75); PLATELET COUNT 211 x10^3/uL (130-400); RED BLOOD COUNT 3.39 x10^6/uL (4.38-5.82); RED CELL DISTRIBUTION WIDTH 14.1 % (9.4-14.8)
[2017-10-12 04:50] LABS: CHLORIDE 105 mmol/L (98-107)
[2017-10-12 04:58] LABS: ALANINE AMINOTRANSFERASE 9 U/L (12-78); ALBUMIN 2.1 g/dL (3.4-5.0); ALKALINE PHOSPHATASE 79 U/L (45-117); ANION GAP 2 mmol/L (5-15); BILIRUBIN,TOTAL 0.2 mg/dL (0.2-1.0); CALCIUM 8.1 mg/dL (8.5-10.1); CREATININE 0.22 mg/dL (0.7-1.3); TOTAL PROTEIN 5.9 g/dL (6.4-8.2)
[2017-10-12] MEDS: NYSTATIN TOPICAL POWDER 15GM TP SCH ×3 (09:00→20:47)
[2017-10-12] MEDS: BACLOFEN 10 MG TABLET PO SCH ×2 (09:18→20:47)
[2017-10-12] MEDS: PHENYTOIN 125 MG/5 ML ORAL SUSP GT SCH (09:18)
[2017-10-12] MEDS: DOCUSATE 50 MG/5 ML, 10ML UDC GT SCH (09:18)
[2017-10-12] MEDS: FAMOTIDINE 40 MG/5 ML ORAL SUSP PEG SCH ×2 (09:18→20:47)
[2017-10-12] MEDS: HYDROcodone/APAP 7.5-325MG/15ML UDC PO PRN ×2 (09:36→14:32)
[2017-10-12] MEDS: PROMETHAZINE HOMEMEDPO PRN ×2 (09:36→14:33)
[2017-10-12] MEDS: ARFORMOTEROL 15 MCG NPPB SCH ×2 (11:17→21:00)
[2017-10-12] MEDS: ENOXAPARIN 40 MG/0.4 ML SQ SCH (18:10)
[2017-10-12] MEDS: LIDODERM 5% PATCH TD SCH (20:48)
[2017-10-13] MEDS: MEROPENEM 1 GM in SODIUM CHLORIDE 0.9% 100 ML IV SCH ×3 (02:24→17:45)
[2017-10-13] MEDS: FAMOTIDINE 40 MG/5 ML ORAL SUSP PEG SCH ×2 (08:51→21:25)
[2017-10-13] MEDS: DOCUSATE 50 MG/5 ML, 10ML UDC GT SCH (08:52)
[2017-10-13] MEDS: BACLOFEN 10 MG TABLET PO SCH ×2 (08:52→21:25)
[2017-10-13] MEDS: NYSTATIN TOPICAL POWDER 15GM TP SCH ×3 (08:56→21:00)
[2017-10-13] MEDS: ARFORMOTEROL 15 MCG NPPB SCH ×2 (09:00→15:47)
[2017-10-13] MEDS ORDERED: PHENAZOPYRIDINE 200 MG TABLET PO PRN (09:30)
[2017-10-13] MEDS ORDERED: OPIUM/BELLADONNA SUPP.RECT 16.2-60 MG PR PRN (09:30)
[2017-10-13] MEDS: PHENYTOIN 125 MG/5 ML ORAL SUSP GT SCH (10:35)
[2017-10-13] MEDS: HYDROcodone/APAP 7.5-325MG/15ML UDC PO PRN ×2 (16:27→21:19)
[2017-10-13] MEDS: PROMETHAZINE HOMEMEDPO PRN (16:29)
[2017-10-13] MEDS: ENOXAPARIN 40 MG/0.4 ML SQ SCH (17:45)
[2017-10-13] MEDS: LIDODERM 5% PATCH TD SCH (21:25)
[2017-10-13] MEDS: POLYETHYLENE GLYCOL 17 GM PACKET NG PRN (21:25)
[2017-10-14] MEDS: MEROPENEM 1 GM in SODIUM CHLORIDE 0.9% 100 ML IV SCH ×3 (02:25→18:36)
[2017-10-14] MEDS: ARFORMOTEROL 15 MCG NPPB SCH ×3 (04:47→20:51)
[2017-10-14 04:57] LABS: BASOPHILS # (AUTO) 0.07 x10^3/uL (0-0.1); BASOPHILS % (AUTO) 1 % (0-1); EOSINOPHILS # (AUTO) 0.55 x10^3/uL (0-0.4); EOSINOPHILS % (AUTO) 8 % (1-7); LYMPHOCYTES # (AUTO) 1.33 x10^3/uL (1-3.4); LYMPHOCYTES % (AUTO) 19 % (22-44); MD NO; MEAN CORPUSCULAR HEMOGLOBIN 29.7 pg (27.5-34.5); MEAN CORPUSCULAR HGB CONC 32.8 g/dL (33.2-36.2); MEAN CORPUSCULAR VOLUME 90.6 fL (81-97); MONOCYTES # (AUTO) 0.85 x10^3/uL (0.2-0.8); MONOCYTES % (AUTO) 12 % (2-9); NEUTROPHILS # (AUTO) 4.04 x10^3/uL (1.8-6.8); NEUTROPHILS % (AUTO) 59 % (42-75); PLATELET COUNT 239 x10^3/uL (130-400); RED BLOOD COUNT 3.57 x10^6/uL (4.38-5.82)
[2017-10-14 05:11] LABS: CHLORIDE 105 mmol/L (98-107)
[2017-10-14 05:18] LABS: ALANINE AMINOTRANSFERASE 9 U/L (12-78); ALBUMIN 2.3 g/dL (3.4-5.0); ALKALINE PHOSPHATASE 80 U/L (45-117); ANION GAP 4 mmol/L (5-15); BILIRUBIN,TOTAL 0.2 mg/dL (0.2-1.0); CALCIUM 8.2 mg/dL (8.5-10.1); TOTAL PROTEIN 6.6 g/dL (6.4-8.2)
[2017-10-14 05:28] LABS: CREATININE < 0.15 mg/dL (0.7-1.3)
[2017-10-14] MEDS: HYDROcodone/APAP 7.5-325MG/15ML UDC PO PRN ×5 (05:41→23:09)
[2017-10-14] MEDS: NYSTATIN TOPICAL POWDER 15GM TP SCH ×3 (09:00→21:00)
[2017-10-14] MEDS: PROMETHAZINE HOMEMEDPO PRN ×3 (09:48→17:40)
[2017-10-14] MEDS: FAMOTIDINE 40 MG/5 ML ORAL SUSP PEG SCH ×2 (10:57→21:21)
[2017-10-14] MEDS: PHENYTOIN 125 MG/5 ML ORAL SUSP GT SCH (10:57)
[2017-10-14] MEDS: BACLOFEN 10 MG TABLET PO SCH ×2 (10:57→21:20)
[2017-10-14] MEDS: DOCUSATE 50 MG/5 ML, 10ML UDC GT SCH (10:57)
[2017-10-14] MEDS: ENOXAPARIN 40 MG/0.4 ML SQ SCH (17:40)
[2017-10-14] MEDS: LIDODERM 5% PATCH TD SCH (21:21)
[2017-10-15] MEDS: MEROPENEM 1 GM in SODIUM CHLORIDE 0.9% 100 ML IV SCH (01:49)
[2017-10-15] MEDS: HYDROcodone/APAP 7.5-325MG/15ML UDC PO PRN ×2 (04:03→08:45)
[2017-10-15] MEDS: ARFORMOTEROL 15 MCG NPPB SCH (06:59)
[2017-10-15] MEDS: BACLOFEN 10 MG TABLET PO SCH (08:46)
[2017-10-15] MEDS: DOCUSATE 50 MG/5 ML, 10ML UDC GT SCH (08:46)
[2017-10-15] MEDS: FAMOTIDINE 40 MG/5 ML ORAL SUSP PEG SCH (08:47)
[2017-10-15] MEDS: NYSTATIN TOPICAL POWDER 15GM TP SCH (08:47)
[2017-10-15] MEDS: PHENYTOIN 125 MG/5 ML ORAL SUSP GT SCH (08:47)
[2017-10-15] MEDS ORDERED: NYST60PO TP (11:49)
== END 2017-10-15 12:39 | disposition home or self-care (01) | DRG 870 ==
LOC: ED 16:40 → EDIP 17:01 → ICU 19:39
PROVIDERS: ADMIT Hospitalist; ATTEND Hospitalist
PROC: 0T9B70Z Drainage of Bladder with Drainage Device, Via Natural or Artificial Opening (ICD-10-PCS; 2017-10-05)
PROC: 0BH17EZ Insertion of Endotracheal Airway into Trachea, Via Natural or Artificial Opening (ICD-10-PCS; principal; 2017-10-11)
PROC: 5A1955Z Respiratory Ventilation, Greater than 96 Consecutive Hours (ICD-10-PCS; 2017-10-11)
DX: A41.9 Sepsis, unspecified organism (principal); G82.50 Quadriplegia, unspecified; Z99.11 Dependence on respirator [ventilator] status; J96.10 Chronic respiratory failure, unspecified whether with hypoxia or hypercapnia; Z93.0 Tracheostomy status; N39.0 Urinary tract infection, site not specified; Z93.3 Colostomy status; B95.7 Other staphylococcus as the cause of diseases classified elsewhere; B95.2 Enterococcus as the cause of diseases classified elsewhere; B96.1 Klebsiella pneumoniae [K. pneumoniae] as the cause of diseases classified elsewhere; Z16.12 Extended spectrum beta lactamase (ESBL) resistance; G40.909 Epilepsy, unspecified, not intractable, without status epilepticus; I51.7 Cardiomegaly; Z87.440 Personal history of urinary (tract) infections; Z93.59 Other cystostomy status; Z87.01 Personal history of pneumonia (recurrent); Z88.0 Allergy status to penicillin; Z88.5 Allergy status to narcotic agent; Z88.8 Allergy status to other drugs, medicaments and biological substances; Z93.1 Gastrostomy status; Z80.9 Family history of malignant neoplasm, unspecified; Z82.49 Family history of ischemic heart disease and other diseases of the circulatory system
CPT/HCPCS: 36415; 36600; 71045; 80048; 80053; 80185; 81001; 82803; 83605; 83735; 84100; 85025; 87040; 87077; 87081; 87086; 87186; 93005; 94003; 94640; 96372; 96374; 96375; J1170; J1650; J1885; J2185; J2248; J2405; J3360; J7613; Q0169; J3475; J7030; J7040

== ENCOUNTER 2018-07-22 14:24 | Inpatient (IN) | payer OTHER, MEDICAID ==
[~2018-07-22] VITALS: Ht 182.9 cm; Wt 70.8 kg
[~2018-07-22 14:24] MED LIST changes: +METR500T PO; +NYST60PO TP; +ONDA4TAB7 PO; -PHEN125O11 PO; +PHEN125O4 PO; -PROM6.25 PEG; +PROM6.256 PEG; +SULF1TAB23 PO
[2018-07-22] MEDS ORDERED: PLEASE ENTER HEIGHT AND WEIGHT MC SCH (15:00)
[2018-07-22] MEDS ORDERED: VANCOMYCIN 1,200 MG in SODIUM CHLORIDE 0.9% 250 ML IV ONE (15:30)
[2018-07-22] MEDS ORDERED: PHARMACOKINETIC CONSULTATION MC ONE ×2 (15:30→19:30)
[2018-07-22] MEDS ORDERED: CEFTRIAXONE 1,000 MG in SODIUM CHLORIDE 0.9% 50 ML IV SCH (15:30)
[2018-07-22] MEDS ORDERED: VANCOMYCIN PER PHARMACY MC PRN ×2 (15:30→16:30)
[2018-07-22 15:32] LABS: BASOPHILS # (AUTO) 0.02 x10^3/uL (0-0.1); BASOPHILS % (AUTO) 0 % (0-1); EOSINOPHILS # (AUTO) 0.14 x10^3/uL (0-0.4); EOSINOPHILS % (AUTO) 3 % (1-7); LYMPHOCYTES # (AUTO) 0.54 x10^3/uL (1-3.4); LYMPHOCYTES % (AUTO) 10 % (22-44); MD NO; MEAN CORPUSCULAR HEMOGLOBIN 32.5 pg (27.5-34.5); MEAN CORPUSCULAR HGB CONC 33.1 g/dL (33.2-36.2); MEAN CORPUSCULAR VOLUME 98.3 fL (81-97); MEAN PLATELET VOLUME 7.8 fL (7.4-10.4); MONOCYTES # (AUTO) 0.54 x10^3/uL (0.2-0.8); MONOCYTES % (AUTO) 10 % (2-9); NEUTROPHILS # (AUTO) 4.27 x10^3/uL (1.8-6.8); NEUTROPHILS % (AUTO) 78 % (42-75); PLATELET COUNT 307 x10^3/uL (130-400); RED BLOOD COUNT 3.24 x10^6/uL (4.38-5.82); RED CELL DISTRIBUTION WIDTH 16.7 % (9.4-14.8)
[2018-07-22 15:40] LABS: INTERNATIONAL NORMALIZED RATIO 0.97 (0.93-1.1)
[2018-07-22] MEDS ORDERED: CEFTRIAXONE PMX 1GM/50ML 0 ML ONE (15:52)
[2018-07-22] MEDS ORDERED: HYDROmorphone 2 MG/ML, 1ML ONE (15:52)
[2018-07-22 15:59] LABS: ALANINE AMINOTRANSFERASE 12 U/L (12-78); ALBUMIN 1.8 g/dL (3.4-5.0); ANION GAP 6 mmol/L (5-15); CALCIUM 7.4 mg/dL (8.5-10.1); CHLORIDE 99 mmol/L (98-107); CREATININE 0.19 mg/dL (0.7-1.3)
[2018-07-22] MEDS ORDERED: MEROPENEM 1 GM in SODIUM CHLORIDE 0.9% 100 ML IV ONE (16:00)
[2018-07-22] MEDS: HYDROmorphone 2 MG/ML, 1ML IVPush PRN ×2 (16:00→20:33)
[2018-07-22 16:01] LABS: ALKALINE PHOSPHATASE 320 U/L (45-117); BILIRUBIN,TOTAL 0.4 mg/dL (0.2-1.0); TOTAL PROTEIN 6.5 g/dL (6.4-8.2)
[2018-07-22] MEDS: MEROPENEM 1 GM in SODIUM CHLORIDE 0.9% 100 ML IV SCH ×2 (16:30→17:51)
[2018-07-22] MEDS ORDERED: ENALAPRILAT 1.25 MG/ML, 2ML IVPush PRN (16:30)
[2018-07-22] MEDS ORDERED: ACETAMINOPHEN 325 MG TABLET PO PRN (16:30)
[2018-07-22] MEDS ORDERED: LABETALOL 5MG/ML, 20ML IVPush PRN (16:30)
[2018-07-22] MEDS ORDERED: IBUPROFEN 600 MG TABLET PO PRN (16:30)
[2018-07-22] MEDS ORDERED: DOCUSATE 100 MG CAPSULE PO PRN (16:30)
[2018-07-22] MEDS ORDERED: POLYETHYLENE GLYCOL 17 GM PACKET PO PRN (16:30)
[2018-07-22 16:37] LABS: CULTURE INDICATED? YES; MICROSCOPIC INDICATED
[2018-07-22] MEDS ORDERED: PHARMACOKINETIC MONITORING MC PRN (19:30)
[2018-07-22] MEDS: ARFORMOTEROL TARTRATE INH SCH (21:00)
[2018-07-22] MEDS: HYDROcodone/APAP 7.5-325MG/15ML UDC GT SCH (21:43)
[2018-07-22] MEDS: DIAZEPAM 5 MG TABLET PO SCH (21:44)
[2018-07-22] MEDS: BACLOFEN 10 MG TABLET PO SCH (21:44)
[2018-07-22] MEDS: FAMOTIDINE 20 MG TABLET PO SCH (21:44)
[2018-07-22 23:13] VITALS: BP 146/82
[2018-07-23] MEDS: MEROPENEM 1 GM in SODIUM CHLORIDE 0.9% 100 ML IV SCH ×3 (00:06→17:41)
[2018-07-23] MEDS: HYDROmorphone 2 MG/ML, 1ML IV PRN ×5 (03:12→23:07)
[2018-07-23 04:31] LABS: MEAN CORPUSCULAR HEMOGLOBIN 31.4 pg (27.5-34.5); MEAN CORPUSCULAR HGB CONC 31.5 g/dL (33.2-36.2); MEAN CORPUSCULAR VOLUME 99.6 fL (81-97); MEAN PLATELET VOLUME 7.8 fL (7.4-10.4); PLATELET COUNT 290 x10^3/uL (130-400); RED BLOOD COUNT 3.18 x10^6/uL (4.38-5.82); RED CELL DISTRIBUTION WIDTH 16.8 % (9.4-14.8)
[2018-07-23 04:39] LABS: ALBUMIN 1.6 g/dL (3.4-5.0); ANION GAP 5 mmol/L (5-15); CALCIUM 7.2 mg/dL (8.5-10.1); CHLORIDE 102 mmol/L (98-107)
[2018-07-23 04:43] LABS: ALANINE AMINOTRANSFERASE 13 U/L (12-78); ALKALINE PHOSPHATASE 300 U/L (45-117); BILIRUBIN,TOTAL 0.4 mg/dL (0.2-1.0)
[2018-07-23 04:46] LABS: CREATININE < 0.15 mg/dL (0.7-1.3)
[2018-07-23 05:42] LABS: BASOPHILS # (AUTO) 0.02 x10^3/uL (0-0.1); BASOPHILS % (AUTO) 0 % (0-1); EOSINOPHILS # (AUTO) 0.13 x10^3/uL (0-0.4); EOSINOPHILS % (AUTO) 2 % (1-7); LYMPHOCYTES # (AUTO) 0.57 x10^3/uL (1-3.4); LYMPHOCYTES % (AUTO) 7 % (22-44); MD SCAN; MONOCYTES # (AUTO) 0.92 x10^3/uL (0.2-0.8); MONOCYTES % (AUTO) 11 % (2-9); NEUTROPHILS # (AUTO) 7.01 x10^3/uL (1.8-6.8); NEUTROPHILS % (AUTO) 81 % (42-75)
[2018-07-23] MEDS ORDERED: HEPARIN 5,000 UNITS/ML, 1ML SQ SCH (06:00)
[2018-07-23] MEDS: HYDROcodone/APAP 7.5-325MG/15ML UDC GT SCH ×4 (06:00→21:05)
[2018-07-23] MEDS: VANCOMYCIN 1,200 MG in SODIUM CHLORIDE 0.9% 250 ML IV SCH ×3 (06:00→18:44)
[2018-07-23] MEDS ORDERED: POTASSIUM CHLORIDE 10% 40 MEQ/30 ML UDC PO ONE (08:00)
[2018-07-23] MEDS: BACLOFEN 10 MG TABLET PO SCH ×2 (08:14→21:05)
[2018-07-23] MEDS: FAMOTIDINE 20 MG TABLET PO SCH ×2 (08:14→21:06)
[2018-07-23] MEDS: DIAZEPAM 5 MG TABLET PO SCH ×2 (08:14→21:06)
[2018-07-23] MEDS: SENNA/DOCUSATE TABLET PO SCH (08:14)
[2018-07-23] MEDS: PHENYTOIN 125 MG/5 ML ORAL SUSP PO SCH (09:28)
[2018-07-23] MEDS: DOCUSATE 50 MG/5 ML ORAL SOL GT SCH (09:28)
[2018-07-23] MEDS ORDERED: ONDANSETRON ODT 4 MG ONE (09:51)
[2018-07-23] MEDS: ONDANSETRON ODT 4 MG PO PRN ×2 (10:45→19:43)
[2018-07-23] MEDS: OFLOXACIN OPHTH 0.3%, 5ML EACHEYE SCH ×3 (12:19→21:57)
[2018-07-23] MEDS ORDERED: CIPROFLOXACIN OPHTH SOLN 0.3%, 5ML EACHEYE SCH (14:00)
[2018-07-23] MEDS: ARFORMOTEROL TARTRATE INH SCH (18:48)
[2018-07-24] MEDS: MEROPENEM 1 GM in SODIUM CHLORIDE 0.9% 100 ML IV SCH ×3 (00:22→16:24)
[2018-07-24] MEDS: ARFORMOTEROL TARTRATE INH SCH (02:27)
[2018-07-24] MEDS: ONDANSETRON ODT 4 MG PO PRN (03:26)
[2018-07-24] MEDS: HYDROmorphone 2 MG/ML, 1ML IV PRN ×4 (03:58→23:41)
[2018-07-24 05:46] LABS: ALANINE AMINOTRANSFERASE 12 U/L (12-78); ALBUMIN 1.5 g/dL (3.4-5.0); ANION GAP 5 mmol/L (5-15); CALCIUM 7.3 mg/dL (8.5-10.1); CHLORIDE 105 mmol/L (98-107); CREATININE 0.24 mg/dL (0.7-1.3)
[2018-07-24 05:48] LABS: ALKALINE PHOSPHATASE 279 U/L (45-117); BILIRUBIN,TOTAL 0.2 mg/dL (0.2-1.0)
[2018-07-24] MEDS: VANCOMYCIN 1,200 MG in SODIUM CHLORIDE 0.9% 250 ML IV SCH ×2 (06:09→19:05)
[2018-07-24] MEDS: HYDROcodone/APAP 7.5-325MG/15ML UDC GT SCH ×2 (06:09→11:00)
[2018-07-24] MEDS: OFLOXACIN OPHTH 0.3%, 5ML EACHEYE SCH ×5 (06:11→22:03)
[2018-07-24 07:05] LABS: BASOPHILS # (AUTO) 0.06 x10^3/uL (0-0.1); BASOPHILS % (AUTO) 1 % (0-1); EOSINOPHILS # (AUTO) 0.13 x10^3/uL (0-0.4); EOSINOPHILS % (AUTO) 2 % (1-7); LYMPHOCYTES # (AUTO) 0.63 x10^3/uL (1-3.4); LYMPHOCYTES % (AUTO) 9 % (22-44); MD NO; MEAN CORPUSCULAR HEMOGLOBIN 31.8 pg (27.5-34.5); MEAN CORPUSCULAR HGB CONC 31.7 g/dL (33.2-36.2); MEAN CORPUSCULAR VOLUME 100.3 fL (81-97); MEAN PLATELET VOLUME 7.8 fL (7.4-10.4); MONOCYTES # (AUTO) 0.81 x10^3/uL (0.2-0.8); MONOCYTES % (AUTO) 11 % (2-9); NEUTROPHILS # (AUTO) 5.78 x10^3/uL (1.8-6.8); NEUTROPHILS % (AUTO) 78 % (42-75); PLATELET COUNT 263 x10^3/uL (130-400); RED BLOOD COUNT 3.22 x10^6/uL (4.38-5.82); RED CELL DISTRIBUTION WIDTH 16.8 % (9.4-14.8)
[2018-07-24] MEDS: DIAZEPAM 5 MG TABLET PO SCH (08:19)
[2018-07-24] MEDS: BACLOFEN 10 MG TABLET PO SCH (08:19)
[2018-07-24] MEDS: SENNA/DOCUSATE TABLET PO SCH (08:20)
[2018-07-24] MEDS: DOCUSATE 50 MG/5 ML ORAL SOL GT SCH (08:20)
[2018-07-24] MEDS: FAMOTIDINE 20 MG TABLET PO SCH ×2 (08:20→19:55)
[2018-07-24] MEDS: PHENYTOIN 125 MG/5 ML ORAL SUSP PO SCH (08:25)
[2018-07-24] MEDS ORDERED: SODIUM CHLORIDE 0.9%, 500ML IVBOLUS ONE (15:00)
[2018-07-24] MEDS ORDERED: ALBUMIN HUMAN 25% 100 ML IV ONE (18:30)
[2018-07-24] MEDS ORDERED: FUROSEMIDE 20 MG/2 ML IV ONE (19:00)
[2018-07-24] MEDS ORDERED: ALBUTEROL SULFATE 2.5 MG/3 ML ONE (19:29)
[2018-07-25] MEDS: MEROPENEM 1 GM in SODIUM CHLORIDE 0.9% 100 ML IV SCH ×3 (00:27→16:03)
[2018-07-25] MEDS: ARFORMOTEROL TARTRATE INH SCH (02:12)
[2018-07-25] MEDS: HYDROmorphone 2 MG/ML, 1ML IV PRN ×3 (03:45→21:48)
[2018-07-25 06:10] LABS: CHLORIDE 103 mmol/L (98-107)
[2018-07-25 06:14] LABS: BASOPHILS # (AUTO) 0.09 x10^3/uL (0-0.1); BASOPHILS % (AUTO) 1 % (0-1); EOSINOPHILS # (AUTO) 0.18 x10^3/uL (0-0.4); EOSINOPHILS % (AUTO) 2 % (1-7); LYMPHOCYTES # (AUTO) 0.73 x10^3/uL (1-3.4); LYMPHOCYTES % (AUTO) 8 % (22-44); MD NO; MEAN CORPUSCULAR HEMOGLOBIN 32.3 pg (27.5-34.5); MEAN CORPUSCULAR HGB CONC 32.3 g/dL (33.2-36.2); MEAN CORPUSCULAR VOLUME 99.8 fL (81-97); MEAN PLATELET VOLUME 8.2 fL (7.4-10.4); MONOCYTES # (AUTO) 1.31 x10^3/uL (0.2-0.8); MONOCYTES % (AUTO) 14 % (2-9); NEUTROPHILS # (AUTO) 7.14 x10^3/uL (1.8-6.8); NEUTROPHILS % (AUTO) 76 % (42-75); PLATELET COUNT 244 x10^3/uL (130-400); RED BLOOD COUNT 3.45 x10^6/uL (4.38-5.82); RED CELL DISTRIBUTION WIDTH 16.4 % (9.4-14.8)
[2018-07-25 06:20] LABS: ALANINE AMINOTRANSFERASE 11 U/L (12-78); ALBUMIN 1.6 g/dL (3.4-5.0); ALKALINE PHOSPHATASE 273 U/L (45-117); ANION GAP 4 mmol/L (5-15); BILIRUBIN,TOTAL 0.3 mg/dL (0.2-1.0); CALCIUM 7.4 mg/dL (8.5-10.1); CREATININE 0.21 mg/dL (0.7-1.3); TOTAL PROTEIN 6.5 g/dL (6.4-8.2); VANCOMYCIN,TROUGH 36.9 mcg/mL (5.0-10.0)
[2018-07-25] MEDS: OFLOXACIN OPHTH 0.3%, 5ML EACHEYE SCH ×5 (06:27→21:48)
[2018-07-25] MEDS: VANCOMYCIN 1,200 MG in SODIUM CHLORIDE 0.9% 250 ML IV SCH (06:32)
[2018-07-25] MEDS: HYDROcodone/APAP 7.5-325MG/15ML UDC GT PRN ×3 (06:38→19:23)
[2018-07-25] MEDS ORDERED: MAGNESIUM SULFATE PMX 2GM/50ML 50 ML IV ONE (07:00)
[2018-07-25] MEDS: DOCUSATE 50 MG/5 ML ORAL SOL GT SCH (08:24)
[2018-07-25] MEDS: SENNA/DOCUSATE TABLET PO SCH (08:24)
[2018-07-25] MEDS: PHENYTOIN 125 MG/5 ML ORAL SUSP PO SCH (09:39)
[2018-07-25] MEDS: FAMOTIDINE 20 MG TABLET PO SCH ×2 (09:40→19:23)
[2018-07-25] MEDS: DIAZEPAM 5 MG TABLET PO PRN (09:40)
[2018-07-25] MEDS: ONDANSETRON ODT 4 MG PO PRN ×2 (10:11→23:52)
[2018-07-25] MEDS ORDERED: ALBUMIN HUMAN 25% 100 ML IV ONE (13:00)
[2018-07-25] MEDS ORDERED: FUROSEMIDE 20 MG/2 ML IV ONE (13:30)
[2018-07-26] MEDS: MEROPENEM 1 GM in SODIUM CHLORIDE 0.9% 100 ML IV SCH ×3 (00:02→17:39)
[2018-07-26] MEDS: HYDROcodone/APAP 7.5-325MG/15ML UDC GT PRN ×4 (03:03→22:21)
[2018-07-26] MEDS: HYDROmorphone 2 MG/ML, 1ML IV PRN ×4 (03:50→23:42)
[2018-07-26 06:14] LABS: MD YES; MEAN CORPUSCULAR HEMOGLOBIN 32.2 pg (27.5-34.5); MEAN CORPUSCULAR HGB CONC 32.6 g/dL (33.2-36.2); MEAN CORPUSCULAR VOLUME 98.8 fL (81-97); MEAN PLATELET VOLUME 8.2 fL (7.4-10.4); PLATELET COUNT 257 x10^3/uL (130-400); RED CELL DISTRIBUTION WIDTH 16.3 % (9.4-14.8)
[2018-07-26 06:17] LABS: ANION GAP 3 mmol/L (5-15); CALCIUM 7.7 mg/dL (8.5-10.1); CHLORIDE 98 mmol/L (98-107); CREATININE 0.22 mg/dL (0.7-1.3)
[2018-07-26 06:19] LABS: VANCOMYCIN,RANDOM 17.8 mcg/mL
[2018-07-26] MEDS: OFLOXACIN OPHTH 0.3%, 5ML EACHEYE SCH ×5 (06:19→21:39)
[2018-07-26] MEDS ORDERED: VANCOMYCIN PMX 1GM/200ML 200 ML IV ONE (07:00)
[2018-07-26] MEDS: PHENYTOIN 125 MG/5 ML ORAL SUSP PO SCH (08:00)
[2018-07-26] MEDS: FAMOTIDINE 20 MG TABLET PO SCH ×2 (08:01→21:29)
[2018-07-26] MEDS: DIAZEPAM 5 MG TABLET PO PRN ×2 (08:01→19:44)
[2018-07-26] MEDS: SENNA/DOCUSATE TABLET PO SCH (08:01)
[2018-07-26] MEDS: DOCUSATE 50 MG/5 ML, 10ML UDC GT SCH (08:02)
[2018-07-26 08:11] LABS: EOS% (MANUAL) 1 % (1-7); MONOS#(MANUAL) 1.22 x10^3/uL (0.3-2.7); MONOS% (MANUAL) 12 % (2-9)
[2018-07-26 08:12] LABS: <PLATELET ESTIMATE> ADEQUATE; <PLT MORPHOLOGY> NORMAL PLT MORPH; ANISOCYTOSIS 1+; LYMPH#(MANUAL) 1.12 x10^3/uL (1-3.4); LYMPHS% (MANUAL) 11 % (22-44); SEG#(MANUAL) 7.75 x10^3/uL (1.8-6.8); SEGS% (MANUAL) 76 % (42-75)
[2018-07-26] MEDS ORDERED: SODIUM PHOSPHATE 30 MMOL in SODIUM CHLORIDE 0.9% 500 ML IV ONE (10:00)
[2018-07-26] MEDS ORDERED: HYDROcodone/APAP 7.5-325MG/15ML UDC ONE (13:03)
[2018-07-26] MEDS ORDERED: FENTANYL PF 100 MCG/2ML ONE (14:53)
[2018-07-26] MEDS ORDERED: MIDAZOLAM 1 MG/ML, 2ML ONE (14:53)
[2018-07-26] MEDS ORDERED: HYDROmorphone 1 MG/ML, 1ML IM ONE (20:35)
[2018-07-26] MEDS ORDERED: HYDROmorphone 2 MG/ML, 1ML ONE (20:40)
[2018-07-26] MEDS: BACLOFEN 10 MG TABLET PO PRN (21:29)
[2018-07-26] MEDS: ARFORMOTEROL TARTRATE INH SCH (21:38)
[2018-07-27] MEDS: MEROPENEM 1 GM in SODIUM CHLORIDE 0.9% 100 ML IV SCH ×3 (00:16→17:59)
[2018-07-27] MEDS: HYDROcodone/APAP 7.5-325MG/15ML UDC GT PRN ×3 (02:48→21:46)
[2018-07-27] MEDS: HYDROmorphone 2 MG/ML, 1ML IV PRN ×3 (03:54→13:18)
[2018-07-27] MEDS: OFLOXACIN OPHTH 0.3%, 5ML EACHEYE SCH ×5 (03:54→21:46)
[2018-07-27 04:01] LABS: BASOPHILS # (AUTO) 0.04 x10^3/uL (0-0.1); BASOPHILS % (AUTO) 1 % (0-1); EOSINOPHILS # (AUTO) 0.25 x10^3/uL (0-0.4); EOSINOPHILS % (AUTO) 3 % (1-7); LYMPHOCYTES # (AUTO) 0.66 x10^3/uL (1-3.4); LYMPHOCYTES % (AUTO) 8 % (22-44); MD NO; MEAN CORPUSCULAR HEMOGLOBIN 32.7 pg (27.5-34.5); MEAN CORPUSCULAR HGB CONC 33.5 g/dL (33.2-36.2); MEAN CORPUSCULAR VOLUME 97.6 fL (81-97); MEAN PLATELET VOLUME 8.2 fL (7.4-10.4); MONOCYTES # (AUTO) 0.94 x10^3/uL (0.2-0.8); MONOCYTES % (AUTO) 12 % (2-9); NEUTROPHILS # (AUTO) 5.99 x10^3/uL (1.8-6.8); NEUTROPHILS % (AUTO) 76 % (42-75); PLATELET COUNT 166 x10^3/uL (130-400); RED BLOOD COUNT 2.94 x10^6/uL (4.38-5.82); RED CELL DISTRIBUTION WIDTH 16.1 % (9.4-14.8)
[2018-07-27 04:13] LABS: ANION GAP 6 mmol/L (5-15); CALCIUM 6.7 mg/dL (8.5-10.1); CHLORIDE 100 mmol/L (98-107)
[2018-07-27 04:14] LABS: VANCOMYCIN,RANDOM 19.9 mcg/mL
[2018-07-27 04:35] LABS: CREATININE < 0.15 mg/dL (0.7-1.3)
[2018-07-27] MEDS ORDERED: VANCOMYCIN PMX 1GM/200ML 200 ML IV ONE (08:00)
[2018-07-27] MEDS: DOCUSATE 50 MG/5 ML, 10ML UDC GT SCH (08:52)
[2018-07-27] MEDS: PHENYTOIN 125 MG/5 ML ORAL SUSP PO SCH (08:52)
[2018-07-27] MEDS: FAMOTIDINE 20 MG TABLET PO SCH ×2 (08:52→21:46)
[2018-07-27] MEDS: SENNA/DOCUSATE TABLET PO SCH (09:07)
[2018-07-27] MEDS: BACLOFEN 10 MG TABLET PO PRN (10:38)
[2018-07-27] MEDS ORDERED: POTASSIUM CHLORIDE 10% 20 MEQ/15 ML UDC PO ONE (12:30)
[2018-07-27] MEDS ORDERED: ALBUMIN HUMAN 25% 100 ML IV ONE (12:30)
[2018-07-27] MEDS ORDERED: FUROSEMIDE 20 MG/2 ML IV ONE (13:00)
[2018-07-27] MEDS: ARFORMOTEROL TARTRATE INH SCH (21:00)
[2018-07-28] MEDS: MEROPENEM 1 GM in SODIUM CHLORIDE 0.9% 100 ML IV SCH ×3 (00:38→17:16)
[2018-07-28] MEDS: HYDROmorphone 2 MG/ML, 1ML IV PRN ×5 (00:48→19:40)
[2018-07-28] MEDS: HYDROcodone/APAP 7.5-325MG/15ML UDC GT PRN ×4 (03:58→23:22)
[2018-07-28] MEDS: OFLOXACIN OPHTH 0.3%, 5ML EACHEYE SCH ×5 (05:48→20:44)
[2018-07-28 06:06] LABS: MEAN CORPUSCULAR HEMOGLOBIN 32.2 pg (27.5-34.5); MEAN CORPUSCULAR HGB CONC 32.7 g/dL (33.2-36.2); MEAN CORPUSCULAR VOLUME 98.3 fL (81-97); MEAN PLATELET VOLUME 8.6 fL (7.4-10.4); PLATELET COUNT 146 x10^3/uL (130-400); RED BLOOD COUNT 2.95 x10^6/uL (4.38-5.82); RED CELL DISTRIBUTION WIDTH 16.3 % (9.4-14.8)
[2018-07-28 06:14] LABS: ANION GAP 2 mmol/L (5-15); CALCIUM 7.3 mg/dL (8.5-10.1); CHLORIDE 98 mmol/L (98-107)
[2018-07-28 06:15] LABS: CREATININE < 0.15 mg/dL (0.7-1.3)
[2018-07-28 06:51] LABS: BASOPHILS # (AUTO) 0.03 x10^3/uL (0-0.1); BASOPHILS % (AUTO) 0 % (0-1); EOSINOPHILS % (AUTO) 3 % (1-7); LYMPHOCYTES # (AUTO) 0.62 x10^3/uL (1-3.4); LYMPHOCYTES % (AUTO) 7 % (22-44); MD SCAN; MONOCYTES # (AUTO) 0.99 x10^3/uL (0.2-0.8); MONOCYTES % (AUTO) 11 % (2-9); NEUTROPHILS # (AUTO) 7.22 x10^3/uL (1.8-6.8); NEUTROPHILS % (AUTO) 79 % (42-75)
[2018-07-28] MEDS: FAMOTIDINE 20 MG TABLET PO SCH ×2 (08:04→20:44)
[2018-07-28] MEDS: SENNA/DOCUSATE TABLET PO SCH (08:04)
[2018-07-28] MEDS: DOCUSATE 50 MG/5 ML, 10ML UDC GT SCH (08:04)
[2018-07-28] MEDS: PHENYTOIN 125 MG/5 ML ORAL SUSP PO SCH (08:05)
[2018-07-28] MEDS: LIDODERM 5% PATCH TD SCH (16:00)
[2018-07-28] MEDS: ARFORMOTEROL TARTRATE INH SCH (18:57)
[2018-07-28] MEDS: VANCOMYCIN PMX 1GM/200ML 200 ML IVPB SCH (20:44)
[2018-07-29] MEDS: MEROPENEM 1 GM in SODIUM CHLORIDE 0.9% 100 ML IV SCH ×4 (00:24→23:59)
[2018-07-29] MEDS: HYDROmorphone 2 MG/ML, 1ML IV PRN ×5 (00:35→21:10)
[2018-07-29] MEDS: DIAZEPAM 5 MG TABLET PO PRN ×2 (04:29→21:56)
[2018-07-29 04:40] LABS: BASOPHILS # (AUTO) 0.06 x10^3/uL (0-0.1); BASOPHILS % (AUTO) 1 % (0-1); EOSINOPHILS # (AUTO) 0.49 x10^3/uL (0-0.4); EOSINOPHILS % (AUTO) 4 % (1-7); LYMPHOCYTES # (AUTO) 0.64 x10^3/uL (1-3.4); LYMPHOCYTES % (AUTO) 6 % (22-44); MD NO; MEAN CORPUSCULAR HEMOGLOBIN 32.4 pg (27.5-34.5); MEAN CORPUSCULAR HGB CONC 32.9 g/dL (33.2-36.2); MEAN CORPUSCULAR VOLUME 98.4 fL (81-97); MONOCYTES # (AUTO) 1.41 x10^3/uL (0.2-0.8); MONOCYTES % (AUTO) 13 % (2-9); NEUTROPHILS # (AUTO) 8.52 x10^3/uL (1.8-6.8); NEUTROPHILS % (AUTO) 77 % (42-75); PLATELET COUNT 177 x10^3/uL (130-400); RED BLOOD COUNT 3.06 x10^6/uL (4.38-5.82); RED CELL DISTRIBUTION WIDTH 15.9 % (9.4-14.8)
[2018-07-29 04:47] LABS: ANION GAP 0 mmol/L (5-15); CALCIUM 7.8 mg/dL (8.5-10.1); CHLORIDE 100 mmol/L (98-107)
[2018-07-29 04:50] LABS: CREATININE < 0.15 mg/dL (0.7-1.3)
[2018-07-29] MEDS: OFLOXACIN OPHTH 0.3%, 5ML EACHEYE SCH ×5 (05:03→21:03)
[2018-07-29] MEDS: HYDROcodone/APAP 7.5-325MG/15ML UDC GT PRN ×3 (07:16→21:56)
[2018-07-29] MEDS: LIDODERM 5% PATCH TD SCH (07:18)
[2018-07-29] MEDS: DOCUSATE 50 MG/5 ML, 10ML UDC GT SCH (08:43)
[2018-07-29] MEDS: PHENYTOIN 125 MG/5 ML ORAL SUSP PO SCH (08:44)
[2018-07-29] MEDS: SENNA/DOCUSATE TABLET PO SCH (08:44)
[2018-07-29] MEDS: FAMOTIDINE 20 MG TABLET PO SCH ×2 (08:44→21:02)
[2018-07-29] MEDS ORDERED: CALCIUM GLUCONATE 4.6 MEQ in SODIUM CHLORIDE 0.9% 50 ML IV ONE (09:30)
[2018-07-29] MEDS: SODIUM POLYSTYRENE SULFONATE ORAL SUSP PEG SCH ×2 (09:49→17:44)
[2018-07-29] MEDS ORDERED: SODIUM PHOSPHATE 20 MMOL in SODIUM CHLORIDE 0.9% 500 ML IV ONE (10:00)
[2018-07-29] MEDS ORDERED: SODIUM BICARB 8.4%, 50ML SYRINGE IVPush ONE (10:00)
[2018-07-29] MEDS ORDERED: ALBUMIN HUMAN 25% 100 ML IV ONE (10:00)
[2018-07-29] MEDS ORDERED: FUROSEMIDE 40 MG/4 ML IV ONE (10:30)
[2018-07-29] MEDS ORDERED: ALBUTEROL SULFATE 2.5 MG/3 ML ONE (10:34)
[2018-07-29] MEDS: ARFORMOTEROL TARTRATE INH SCH (21:00)
[2018-07-29] MEDS: MELATONIN 5 MG TABLET PO PRN (21:02)
[2018-07-29] MEDS: BACLOFEN 10 MG TABLET PO PRN (21:03)
[2018-07-30] MEDS: HYDROmorphone 2 MG/ML, 1ML IV PRN ×5 (02:36→22:32)
[2018-07-30] MEDS: HYDROcodone/APAP 7.5-325MG/15ML UDC GT PRN ×3 (03:59→16:33)
[2018-07-30 04:27] LABS: BASOPHILS # (AUTO) 0.08 x10^3/uL (0-0.1); BASOPHILS % (AUTO) 1 % (0-1); EOSINOPHILS % (AUTO) 6 % (1-7); LYMPHOCYTES # (AUTO) 0.72 x10^3/uL (1-3.4); LYMPHOCYTES % (AUTO) 10 % (22-44); MD NO; MEAN CORPUSCULAR HEMOGLOBIN 32.5 pg (27.5-34.5); MEAN CORPUSCULAR HGB CONC 33.2 g/dL (33.2-36.2); MEAN CORPUSCULAR VOLUME 97.9 fL (81-97); MONOCYTES # (AUTO) 1.01 x10^3/uL (0.2-0.8); MONOCYTES % (AUTO) 14 % (2-9); NEUTROPHILS # (AUTO) 5.05 x10^3/uL (1.8-6.8); NEUTROPHILS % (AUTO) 70 % (42-75); PLATELET COUNT 175 x10^3/uL (130-400); RED BLOOD COUNT 2.81 x10^6/uL (4.38-5.82)
[2018-07-30 04:30] LABS: ALANINE AMINOTRANSFERASE 15 U/L (12-78); ALBUMIN 2.3 g/dL (3.4-5.0); ANION GAP 7 mmol/L (5-15); CALCIUM 7.7 mg/dL (8.5-10.1); CHLORIDE 100 mmol/L (98-107)
[2018-07-30 04:32] LABS: ALKALINE PHOSPHATASE 175 U/L (45-117); BILIRUBIN,TOTAL 0.3 mg/dL (0.2-1.0); TOTAL PROTEIN 6.2 g/dL (6.4-8.2); VANCOMYCIN,RANDOM 12.3 mcg/mL
[2018-07-30 04:33] LABS: CREATININE < 0.15 mg/dL (0.7-1.3)
[2018-07-30] MEDS: OFLOXACIN OPHTH 0.3%, 5ML EACHEYE SCH ×5 (06:03→22:34)
[2018-07-30] MEDS: MEROPENEM 1 GM in SODIUM CHLORIDE 0.9% 100 ML IV SCH ×2 (07:57→15:30)
[2018-07-30] MEDS: SENNA/DOCUSATE TABLET PO SCH (08:47)
[2018-07-30] MEDS: FAMOTIDINE 20 MG TABLET PO SCH ×2 (08:51→21:03)
[2018-07-30] MEDS: DOCUSATE 50 MG/5 ML, 10ML UDC GT SCH (08:51)
[2018-07-30] MEDS: PHENYTOIN 125 MG/5 ML ORAL SUSP PO SCH (08:52)
[2018-07-30] MEDS: VANCOMYCIN PMX 1GM/200ML 200 ML IVPB SCH (08:52)
[2018-07-30] MEDS ORDERED: LIDO700A20 TD (11:00)
[2018-07-30] MEDS ORDERED: VANCOMYCIN (11:00)
[2018-07-30] MEDS ORDERED: MEROPENEM (11:00)
[2018-07-30] MEDS ORDERED: MELA5TAB19 PO (11:00)
[2018-07-30] MEDS: DIAZEPAM 5 MG TABLET PO PRN (11:54)
[2018-07-30] MEDS: LIDODERM 5% PATCH TD SCH ×2 (15:30→15:33)
[2018-07-30] MEDS: ARFORMOTEROL TARTRATE INH SCH ×2 (18:08→22:24)
[2018-07-30] MEDS: MELATONIN 5 MG TABLET PO PRN (21:03)
[2018-07-30] MEDS: BACLOFEN 10 MG TABLET PO PRN (21:04)
[2018-07-31] MEDS: DIAZEPAM 5 MG TABLET PO PRN ×3 (01:10→22:08)
[2018-07-31] MEDS: MEROPENEM 1 GM in SODIUM CHLORIDE 0.9% 100 ML IV SCH ×3 (01:10→17:02)
[2018-07-31] MEDS: HYDROcodone/APAP 7.5-325MG/15ML UDC GT PRN ×4 (01:11→22:07)
[2018-07-31] MEDS: HYDROmorphone 2 MG/ML, 1ML IV PRN ×5 (03:51→22:07)
[2018-07-31 04:17] LABS: BASOPHILS # (AUTO) 0.06 x10^3/uL (0-0.1); BASOPHILS % (AUTO) 1 % (0-1); EOSINOPHILS # (AUTO) 0.48 x10^3/uL (0-0.4); EOSINOPHILS % (AUTO) 5 % (1-7); LYMPHOCYTES # (AUTO) 0.63 x10^3/uL (1-3.4); LYMPHOCYTES % (AUTO) 7 % (22-44); MD NO; MEAN CORPUSCULAR HEMOGLOBIN 32.7 pg (27.5-34.5); MEAN CORPUSCULAR HGB CONC 33.7 g/dL (33.2-36.2); MEAN CORPUSCULAR VOLUME 97.2 fL (81-97); MEAN PLATELET VOLUME 8.4 fL (7.4-10.4); MONOCYTES # (AUTO) 1.29 x10^3/uL (0.2-0.8); MONOCYTES % (AUTO) 13 % (2-9); NEUTROPHILS # (AUTO) 7.12 x10^3/uL (1.8-6.8); NEUTROPHILS % (AUTO) 74 % (42-75); PLATELET COUNT 180 x10^3/uL (130-400); RED BLOOD COUNT 2.78 x10^6/uL (4.38-5.82)
[2018-07-31 04:24] LABS: ANION GAP 5 mmol/L (5-15); CHLORIDE 99 mmol/L (98-107)
[2018-07-31 04:31] LABS: CREATININE < 0.15 mg/dL (0.7-1.3)
[2018-07-31] MEDS: OFLOXACIN OPHTH 0.3%, 5ML EACHEYE SCH ×4 (06:09→17:02)
[2018-07-31] MEDS: DOCUSATE 50 MG/5 ML, 10ML UDC GT SCH (08:17)
[2018-07-31] MEDS: PHENYTOIN 125 MG/5 ML ORAL SUSP PO SCH (08:18)
[2018-07-31] MEDS: SENNA/DOCUSATE TABLET PO SCH (08:18)
[2018-07-31] MEDS: FAMOTIDINE 20 MG TABLET PO SCH ×2 (08:18→22:10)
[2018-07-31] MEDS ORDERED: POTASSIUM PHOSPHATE IV ONE (09:30)
[2018-07-31] MEDS ORDERED: SODIUM CHLORIDE 0.9% IV ONE (09:30)
[2018-07-31] MEDS: ENOXAPARIN 40 MG/0.4 ML SQ SCH (10:40)
[2018-07-31] MEDS: ARFORMOTEROL TARTRATE INH SCH (13:41)
[2018-07-31] MEDS: LIDODERM 5% PATCH TD SCH (16:11)
[2018-07-31] MEDS ORDERED: ALBUTEROL SULFATE 2.5 MG/3 ML ONE (19:53)
[2018-07-31] MEDS: BACLOFEN 10 MG TABLET PO PRN (22:07)
[2018-07-31] MEDS: MELATONIN 5 MG TABLET PO PRN (22:07)
[2018-07-31] MEDS: VANCOMYCIN PMX 1GM/200ML 200 ML IVPB SCH (22:11)
[2018-08-01] MEDS: ALBUTEROL SULFATE 2.5 MG/3 ML NPPB PRN ×2 (00:34→05:42)
[2018-08-01] MEDS: OFLOXACIN OPHTH 0.3%, 5ML EACHEYE SCH ×6 (00:53→20:58)
[2018-08-01] MEDS: MEROPENEM 1 GM in SODIUM CHLORIDE 0.9% 100 ML IV SCH ×4 (00:53→23:50)
[2018-08-01] MEDS: HYDROmorphone 2 MG/ML, 1ML IV PRN ×6 (02:01→20:57)
[2018-08-01] MEDS: HYDROcodone/APAP 7.5-325MG/15ML UDC GT PRN ×4 (04:09→23:49)
[2018-08-01 04:59] LABS: ANION GAP 5 mmol/L (5-15); BASOPHILS # (AUTO) 0.04 x10^3/uL (0-0.1); BASOPHILS % (AUTO) 1 % (0-1); CALCIUM 8.2 mg/dL (8.5-10.1); CHLORIDE 99 mmol/L (98-107); EOSINOPHILS # (AUTO) 0.45 x10^3/uL (0-0.4); EOSINOPHILS % (AUTO) 6 % (1-7); LYMPHOCYTES # (AUTO) 0.53 x10^3/uL (1-3.4); LYMPHOCYTES % (AUTO) 7 % (22-44); MD NO; MEAN CORPUSCULAR HEMOGLOBIN 32.5 pg (27.5-34.5); MEAN CORPUSCULAR HGB CONC 33.5 g/dL (33.2-36.2); MEAN PLATELET VOLUME 8.7 fL (7.4-10.4); MONOCYTES # (AUTO) 1.13 x10^3/uL (0.2-0.8); MONOCYTES % (AUTO) 15 % (2-9); NEUTROPHILS # (AUTO) 5.37 x10^3/uL (1.8-6.8); NEUTROPHILS % (AUTO) 71 % (42-75); PLATELET COUNT 225 x10^3/uL (130-400); RED BLOOD COUNT 2.73 x10^6/uL (4.38-5.82); RED CELL DISTRIBUTION WIDTH 14.9 % (9.4-14.8)
[2018-08-01 05:00] LABS: CREATININE < 0.15 mg/dL (0.7-1.3)
[2018-08-01] MEDS: ENOXAPARIN 40 MG/0.4 ML SQ SCH (07:36)
[2018-08-01] MEDS: FAMOTIDINE 20 MG TABLET PO SCH ×2 (07:40→20:49)
[2018-08-01] MEDS: PHENYTOIN 125 MG/5 ML ORAL SUSP PO SCH (07:41)
[2018-08-01] MEDS: SENNA/DOCUSATE TABLET PO SCH (07:42)
[2018-08-01] MEDS: DOCUSATE 50 MG/5 ML, 10ML UDC GT SCH (07:42)
[2018-08-01] MEDS ORDERED: POTASSIUM PHOSPHATE 44 MEQ in SODIUM CHLORIDE 0.9% 500 ML IV ONE (08:00)
[2018-08-01] MEDS: BACLOFEN 10 MG TABLET PO PRN ×2 (12:07→23:50)
[2018-08-01] MEDS: LIDODERM 5% PATCH TD SCH (16:00)
[2018-08-01] MEDS: ARFORMOTEROL TARTRATE INH SCH (21:00)
[2018-08-01] MEDS: DIAZEPAM 5 MG TABLET PO PRN (23:49)
[2018-08-01] MEDS: MELATONIN 5 MG TABLET PO PRN (23:49)
[2018-08-02] MEDS: OFLOXACIN OPHTH 0.3%, 5ML EACHEYE SCH ×5 (06:25→23:50)
[2018-08-02] MEDS: DOCUSATE 50 MG/5 ML, 10ML UDC GT SCH (09:55)
[2018-08-02] MEDS: VANCOMYCIN PMX 1GM/200ML 200 ML IVPB SCH (09:55)
[2018-08-02] MEDS: MEROPENEM 1 GM in SODIUM CHLORIDE 0.9% 100 ML IV SCH ×3 (09:55→23:47)
[2018-08-02] MEDS: FAMOTIDINE 20 MG TABLET PO SCH ×2 (09:56→21:39)
[2018-08-02] MEDS: PHENYTOIN 125 MG/5 ML ORAL SUSP PO SCH (09:56)
[2018-08-02] MEDS: SENNA/DOCUSATE TABLET PO SCH (09:56)
[2018-08-02] MEDS: HYDROmorphone 2 MG/ML, 1ML IV PRN ×4 (12:33→23:47)
[2018-08-02] MEDS: LIDODERM 5% PATCH TD SCH (16:00)
[2018-08-02] MEDS: MELATONIN 5 MG TABLET PO PRN (17:21)
[2018-08-02] MEDS: HYDROcodone/APAP 7.5-325MG/15ML UDC GT PRN (21:39)
[2018-08-02] MEDS: ARFORMOTEROL TARTRATE INH SCH (23:00)
[2018-08-03] MEDS: DIAZEPAM 5 MG TABLET PO PRN (01:59)
[2018-08-03] MEDS: HYDROcodone/APAP 7.5-325MG/15ML UDC GT PRN ×3 (01:59→23:34)
[2018-08-03] MEDS: HYDROmorphone 2 MG/ML, 1ML IV PRN ×5 (03:37→21:50)
[2018-08-03] MEDS: OFLOXACIN OPHTH 0.3%, 5ML EACHEYE SCH ×5 (06:19→21:51)
[2018-08-03] MEDS: BACLOFEN 10 MG TABLET PO PRN (06:19)
[2018-08-03] MEDS: SENNA/DOCUSATE TABLET PO SCH (09:45)
[2018-08-03] MEDS: MEROPENEM 1 GM in SODIUM CHLORIDE 0.9% 100 ML IV SCH ×2 (09:45→17:27)
[2018-08-03] MEDS: FAMOTIDINE 20 MG TABLET PO SCH ×2 (09:45→21:50)
[2018-08-03] MEDS: DOCUSATE 50 MG/5 ML, 10ML UDC GT SCH (09:45)
[2018-08-03] MEDS: PHENYTOIN 125 MG/5 ML ORAL SUSP PO SCH (09:46)
[2018-08-03] MEDS: LIDODERM 5% PATCH TD SCH (16:00)
[2018-08-03] MEDS: ARFORMOTEROL TARTRATE INH SCH (21:00)
[2018-08-03] MEDS: VANCOMYCIN PMX 1GM/200ML 200 ML IVPB SCH (21:50)
[2018-08-03] MEDS: MELATONIN 5 MG TABLET PO PRN (23:34)
[2018-08-04] MEDS: MEROPENEM 1 GM in SODIUM CHLORIDE 0.9% 100 ML IV SCH ×2 (01:56→08:10)
[2018-08-04] MEDS: HYDROmorphone 2 MG/ML, 1ML IV PRN ×3 (01:59→09:57)
[2018-08-04] MEDS: OFLOXACIN OPHTH 0.3%, 5ML EACHEYE SCH ×2 (06:07→10:10)
[2018-08-04] MEDS: SENNA/DOCUSATE TABLET PO SCH (09:38)
[2018-08-04] MEDS: DOCUSATE 50 MG/5 ML, 10ML UDC GT SCH (09:39)
[2018-08-04] MEDS: FAMOTIDINE 20 MG TABLET PO SCH (09:39)
[2018-08-04] MEDS: PHENYTOIN 125 MG/5 ML ORAL SUSP PO SCH (10:10)
[2018-08-04] MEDS: HYDROcodone/APAP 7.5-325MG/15ML UDC GT PRN (12:44)
== END 2018-08-04 13:02 | DRG 853 ==
LOC: ED 15:56 → EDIP 15:57 → ED 16:57 → CCU 18:47
PROVIDERS: ADMIT Internal Medicine; ATTEND Internal Medicine
PROC: 5A1955Z Respiratory Ventilation, Greater than 96 Consecutive Hours (ICD-10-PCS; 2018-07-23)
PROC: 05H433Z Insertion of Infusion Device into Left Innominate Vein, Percutaneous Approach (ICD-10-PCS; 2018-07-23)
PROC: 0JB70ZZ Excision of Back Subcutaneous Tissue and Fascia, Open Approach (ICD-10-PCS; principal; 2018-07-26 15:00)
PROC: B54NZZA Ultrasonography of Left Upper Extremity Veins, Guidance (ICD-10-PCS; 2018-07-27)
DX: A41.9 Sepsis, unspecified organism (principal); L89.154 Pressure ulcer of sacral region, stage 4; G82.50 Quadriplegia, unspecified; J18.1 Lobar pneumonia, unspecified organism; J96.21 Acute and chronic respiratory failure with hypoxia; T83.518A Infection and inflammatory reaction due to other urinary catheter, initial encounter; E44.0 Moderate protein-calorie malnutrition; J44.0 Chronic obstructive pulmonary disease with (acute) lower respiratory infection; J98.11 Atelectasis; N39.0 Urinary tract infection, site not specified; Z99.11 Dependence on respirator [ventilator] status; Z51.5 Encounter for palliative care; E87.5 Hyperkalemia; G40.909 Epilepsy, unspecified, not intractable, without status epilepticus; I50.9 Heart failure, unspecified; Z16.24 Resistance to multiple antibiotics; M24.541 Contracture, right hand; Z16.12 Extended spectrum beta lactamase (ESBL) resistance; B96.1 Klebsiella pneumoniae [K. pneumoniae] as the cause of diseases classified elsewhere; B96.20 Unspecified Escherichia coli [E. coli] as the cause of diseases classified elsewhere; B95.2 Enterococcus as the cause of diseases classified elsewhere; Y84.6 Urinary catheterization as the cause of abnormal reaction of the patient, or of later complication, without mention of misadventure at the time of the procedure; B96.5 Pseudomonas (aeruginosa) (mallei) (pseudomallei) as the cause of diseases classified elsewhere; Z80.9 Family history of malignant neoplasm, unspecified; Z82.49 Family history of ischemic heart disease and other diseases of the circulatory system; Z88.5 Allergy status to narcotic agent; Z88.8 Allergy status to other drugs, medicaments and biological substances; Z68.21 Body mass index [BMI] 21.0-21.9, adult; Z87.891 Personal history of nicotine dependence; Z91.19 Patient's noncompliance with other medical treatment and regimen; Z93.0 Tracheostomy status; Z93.1 Gastrostomy status; Z93.3 Colostomy status; Z93.59 Other cystostomy status; Z89.201 Acquired absence of right upper limb, unspecified level; Z79.899 Other long term (current) drug therapy; Y92.89 Other specified places as the place of occurrence of the external cause
CPT/HCPCS: 31502; 36415; 36569; 71045; 71250; 74230; 76937; 77001; 80048; 80053; 80185; 80202; 81001; 83605; 83735; 84100; 84132; 84145; 85025; 85610; 85730; 87040; 87070; 87075; 87076; 87077; 87081; 87086; 87186; 87205; 93005; 94003; 94640; 96365; 96367; 96375; G0378; J0610; J0696; J1170; J1644; J1650; J1940; J2185; J2250; J3010; J3370; J7613; P9047; Q0162; C1751; J3475; J7040; J7050

== ENCOUNTER 2019-01-08 20:07 | Inpatient (IN) | payer MEDICARE, MEDICAID ==
[~2019-01-08] VITALS: Ht 182.9 cm; Wt 70.4 kg
[~2019-01-08 20:07] MED LIST changes: +CIPRO EYE EACHEYE; +LIDO700A20 TD; +MELA5TAB19 PO; +MEROPENEM; +VANCOMYCIN
[2019-01-08 20:52] LABS: CULTURE INDICATED? YES; MICROSCOPIC INDICATED
[2019-01-08] MEDS ORDERED: ACETAMINOPHEN 500 MG TABLET PO ONE (21:00)
[2019-01-08] MEDS ORDERED: VANCOMYCIN PER PHARMACY IV ONE ×2 (21:00→21:30)
[2019-01-08] MEDS ORDERED: ONDANSETRON 2MG/ML, 2ML IVPush ONE (21:00)
[2019-01-08] MEDS ORDERED: SODIUM CHLORIDE 0.9% 1,000ML IVBOLUS ONE ×3 (21:00→23:30)
[2019-01-08] MEDS ORDERED: ONDANSETRON 2MG/ML, 2ML ONE (21:03)
[2019-01-08] MEDS ORDERED: HYDROmorphone 1 MG/ML, 1ML VIAL ONE ×2 (21:03→21:22)
[2019-01-08] MEDS ORDERED: ACETAMINOPHEN 500 MG TABLET ONE (21:04)
[2019-01-08] MEDS: HYDROmorphone 2 MG/ML, 1ML IVPush PRN ×2 (21:13→21:39)
[2019-01-08 21:19] LABS: MEAN CORPUSCULAR HEMOGLOBIN 34.5 pg (27.5-34.5); MEAN CORPUSCULAR HGB CONC 33.5 g/dL (33.2-36.2); MEAN CORPUSCULAR VOLUME 102.9 fL (81-97); MEAN PLATELET VOLUME 8.5 fL (7.4-10.4); PLATELET COUNT 202 x10^3/uL (130-400); RED BLOOD COUNT 3.11 x10^6/uL (4.38-5.82); RED CELL DISTRIBUTION WIDTH 17.5 % (9.4-14.8)
--- NOTE | 2019-01-08 21:19 | NUR ---
O2 SET AT 40%
[2019-01-08 21:26] LABS: ALANINE AMINOTRANSFERASE 8 U/L (12-78); ALBUMIN 1.5 g/dL (3.4-5.0); ANION GAP 5 mmol/L (5-15); CALCIUM 7.3 mg/dL (8.5-10.1); CHLORIDE 102 mmol/L (98-107); CREATININE 0.62 mg/dL (0.7-1.3)
[2019-01-08 21:28] LABS: ALKALINE PHOSPHATASE 213 U/L (45-117); BILIRUBIN,TOTAL 0.7 mg/dL (0.2-1.0); TOTAL PROTEIN 7.1 g/dL (6.4-8.2)
[2019-01-08] MEDS ORDERED: CEFTAZIDIME PMX 2 GM/50ML 50 ML IV ONE (21:30)
[2019-01-08] MEDS ORDERED: FLUCONAZOLE 50 MG TABLET PO ONE (21:30)
[2019-01-08 21:42] LABS: BASOPHILS # (AUTO) 0.02 x10^3/uL (0-0.1); BASOPHILS % (AUTO) 0 % (0-1); EOSINOPHILS % (AUTO) 0 % (1-7); LYMPHOCYTES # (AUTO) 0.37 x10^3/uL (1-3.4); LYMPHOCYTES % (AUTO) 2 % (22-44); MD SCAN; MONOCYTES % (AUTO) 3 % (2-9); NEUTROPHILS # (AUTO) 14.66 x10^3/uL (1.8-6.8); NEUTROPHILS % (AUTO) 94 % (42-75)
[2019-01-08 21:49] LABS: RAPID INFLUENZA A Negative (Negative); RAPID INFLUENZA B Negative (Negative)
--- NOTE | 2019-01-08 21:50 | NUR ---
report of pt from brittany garcia. assuming care of pt at this time. vss and updated in emr. pt still febrile. erp notified for new orders
--- NOTE | 2019-01-08 21:51 | NUR ---
pt presents to er. pt is a quadreplegic with right arm amputated. pt has trac and is vented at home at night, otherwise is on 6lpm. pt came to er with supra-pubic cath in place and colostomy bag in place. per family pt has an ulcer on sacrum and pa was able to visualize a picture from the previous day. pt is followed by wound care.
[2019-01-08] MEDS ORDERED: VANCOMYCIN 1,500 MG in SODIUM CHLORIDE 0.9% 250 ML IV ONE (22:00)
[2019-01-08] MEDS ORDERED: KETOROLAC 30 MG/1 ML ONE (22:03)
--- NOTE | 2019-01-08 22:17 | NUR ---
pt medicated per mar.
[2019-01-08] MEDS ORDERED: KETOROLAC 30 MG/1 ML IVPush ONE (22:30)
--- NOTE | 2019-01-08 22:31 | NUR ---
bruno kernso initiated. pt vss at this time. hospitalist at bedside to discuss pt disposition with pt.
[2019-01-08] MEDS ORDERED: POLYETHYLENE GLYCOL 17 GM PACKET GT PRN (23:00)
[2019-01-08] MEDS ORDERED: SODIUM CHLORIDE 0.9%, 500ML IVBOLUS PRN ×2 (23:00)
[2019-01-08] MEDS ORDERED: PHARMACY MAY ADJ FOR RENAL FX MC PRN (23:00)
[2019-01-08] MEDS ORDERED: ACETAMINOPHEN 650 MG SUPP PR PRN (23:00)
[2019-01-08 23:29] LABS: FREE T4 (FREE THYROXINE) 1.2 ng/dL (0.76-1.46); THYROID STIMULATING HORMONE 0.511 mIU/L (0.358-3.740)
[2019-01-08] MEDS ORDERED: ALBUTEROL/IPRATROPIUM 2.5MG/0.5MG, 3 ML NPPB ONE (23:30)
--- NOTE | 2019-01-08 23:39 | NUR ---
report of pt to RNRod[facility]. All questions answered. Pt educated on room assignment and verbalizes understanding. RT to transport pt with RN to unit with ventilator. Transport requested.
[2019-01-09] MEDS: KETOROLAC 30 MG/1 ML IV PRN (00:27)
[2019-01-09] MEDS ORDERED: MAGNESIUM SULFATE PMX 2GM/50ML 50 ML IV ONE (00:30)
[2019-01-09] MEDS: LINEZOLID PMX 600MG/300ML 300 ML IV SCH ×2 (00:39→13:05)
[2019-01-09] MEDS: SODIUM CHLORIDE 0.9% 1,000 ML IV SCH ×2 (00:39→06:11)
[2019-01-09] MEDS: ENOXAPARIN 40 MG/0.4 ML SQ SCH ×2 (00:39→23:20)
[2019-01-09 01:29] LABS: MEAN CORPUSCULAR HEMOGLOBIN 34.4 pg (27.5-34.5); MEAN CORPUSCULAR HGB CONC 32.9 g/dL (33.2-36.2); MEAN CORPUSCULAR VOLUME 104.6 fL (81-97); MEAN PLATELET VOLUME 8.3 fL (7.4-10.4); PLATELET COUNT 156 x10^3/uL (130-400); RED BLOOD COUNT 2.46 x10^6/uL (4.38-5.82)
[2019-01-09] MEDS ORDERED: SODIUM CHLORIDE 0.9%, 500ML IVBOLUS ONE (01:30)
[2019-01-09 01:36] LABS: ALANINE AMINOTRANSFERASE 7 U/L (12-78); ALBUMIN 1.1 g/dL (3.4-5.0); ANION GAP 4 mmol/L (5-15); CALCIUM 6.1 mg/dL (8.5-10.1); CHLORIDE 112 mmol/L (98-107); CREATININE 0.49 mg/dL (0.7-1.3)
[2019-01-09 01:38] LABS: ALKALINE PHOSPHATASE 147 U/L (45-117); BILIRUBIN,TOTAL 0.5 mg/dL (0.2-1.0); TOTAL PROTEIN 5.3 g/dL (6.4-8.2)
[2019-01-09 01:47] LABS: MD YES
[2019-01-09 01:51] LABS: ANISOCYTOSIS 1+; BAND#(MANUAL) 0.86 x10^3/uL; BANDS%(MANUAL) 8 % (0-7); LYMPH#(MANUAL) 0.65 x10^3/uL (1-3.4); LYMPHS% (MANUAL) 6 % (22-44); MONOS#(MANUAL) 0.11 x10^3/uL (0.3-2.7); MONOS% (MANUAL) 1 % (2-9); SEG#(MANUAL) 9.18 x10^3/uL (1.8-6.8); SEGS% (MANUAL) 85 % (42-75)
[2019-01-09] MEDS: HYDROcodone/APAP 7.5-325MG/15ML UDC PO PRN ×4 (01:51→21:55)
[2019-01-09 01:52] LABS: <PLATELET ESTIMATE> ADEQUATE; <PLT MORPHOLOGY> NORMAL PLT MORPH; HYPOCHROMIA 1+
[2019-01-09] MEDS ORDERED: POTASSIUM CHLORIDE 10% 40 MEQ/30 ML UDC GT ONE (03:00)
[2019-01-09] MEDS: MEROPENEM 1 GM in SODIUM CHLORIDE 0.9% 100 ML IV SCH ×3 (03:37→20:00)
[2019-01-09] MEDS: FLUCONAZOLE 200 MG/100 ML 100 ML IV SCH (04:29)
[2019-01-09] MEDS ORDERED: NOREPINEPHRINE 4 MG in SODIUM CHLORIDE 0.9% 246 ML IV PRN ×2 (04:30→09:21)
[2019-01-09] MEDS: HYDROmorphone 2 MG/ML, 1ML IVPush PRN (05:21)
[2019-01-09] MEDS: ONDANSETRON 2MG/ML, 2ML IVPB PRN ×2 (06:11→13:13)
[2019-01-09] MEDS: BROVANA 15 MCG INH SCH ×2 (07:10→09:00)
[2019-01-09] MEDS: PHENYTOIN 125 MG/5 ML ORAL SUSP GT SCH (09:00)
[2019-01-09] MEDS: LACTATED RINGERS 1,000 ML IV SCH ×3 (09:00→23:21)
[2019-01-09] MEDS: DOCUSATE 50 MG/5 ML, 10ML UDC GT SCH (09:00)
[2019-01-09] MEDS: BACLOFEN 10 MG TABLET GT SCH ×2 (09:00→20:51)
[2019-01-09] MEDS: FAMOTIDINE 40 MG/5 ML ORAL SUSP GT SCH ×2 (09:01→20:51)
[2019-01-09] MEDS ORDERED: DEXMEDETOMIDINE 1,000 MCG in SODIUM CHLORIDE 0.9% 240 ML IV PRN (09:21)
[2019-01-09] MEDS ORDERED: POTASSIUM CHLORIDE 10% 40 MEQ/30 ML UDC PO ONE (09:30)
[2019-01-09] MEDS ORDERED: MAGNESIUM SULFATE PMX 4GM/100M 100 ML IVPB ONE (09:30)
[2019-01-09] MEDS ORDERED: GLUCAGON 1 MG IM PRN (09:30)
[2019-01-09] MEDS ORDERED: DEXTROSE 4 GM TAB.CHEW PO PRN (09:30)
[2019-01-09] MEDS ORDERED: PHARMACY MAY ADJ FOR RENAL FX MC SCH (09:30)
[2019-01-09] MEDS ORDERED: POTASSIUM PHOSPHATE 22 MEQ in SODIUM CHLORIDE 0.9% 500 ML IV ONE (09:30)
--- NOTE | 2019-01-09 10:52 | NUR ---
TF GOAL: PROMOTE @ 95ML/HR X 22HR PER DAY; HOLD 1 HOUR BEFORE AND AFTER DILANTIN DOSE
[2019-01-09] MEDS: INSULIN LISPRO 100 UNITS/ML, PEN SQ-INSULIN SCH ×3 (11:00→22:00)
[2019-01-09] MEDS: NYSTATIN TOPICAL POWDER 15GM TP SCH ×3 (11:59→20:52)
[2019-01-09 15:09] LABS: CLOSTRIDIUM DIFFICILE ANTIGEN POSITIVE; CLOSTRIDIUM DIFFICILE TOXIN NEGATIVE (Negative)
[2019-01-09] MEDS: SODIUM CHLORIDE FLUSH 10ML SYR IVF SCH (20:51)
[2019-01-10] MEDS: LINEZOLID PMX 600MG/300ML 300 ML IV SCH ×3 (00:29→23:44)
[2019-01-10] MEDS: INSULIN LISPRO 100 UNITS/ML, PEN SQ-INSULIN SCH ×4 (04:00→20:07)
[2019-01-10] MEDS: MEROPENEM 1 GM in SODIUM CHLORIDE 0.9% 100 ML IV SCH ×3 (04:17→19:09)
[2019-01-10] MEDS ORDERED: ALBUMIN HUMAN 5% 250 ML IV ONE (04:30)
[2019-01-10 04:40] LABS: MEAN CORPUSCULAR HEMOGLOBIN 34.7 pg (27.5-34.5); MEAN CORPUSCULAR HGB CONC 33.2 g/dL (33.2-36.2); MEAN CORPUSCULAR VOLUME 104.6 fL (81-97); MEAN PLATELET VOLUME 8.8 fL (7.4-10.4); PLATELET COUNT 167 x10^3/uL (130-400); RED BLOOD COUNT 2.41 x10^6/uL (4.38-5.82); RED CELL DISTRIBUTION WIDTH 18.2 % (9.4-14.8)
[2019-01-10 04:47] LABS: ALANINE AMINOTRANSFERASE 9 U/L (12-78); ALBUMIN 0.9 g/dL (3.4-5.0); ANION GAP 4 mmol/L (5-15); CALCIUM 6.4 mg/dL (8.5-10.1); CHLORIDE 113 mmol/L (98-107); CREATININE 0.49 mg/dL (0.7-1.3)
[2019-01-10 04:50] LABS: ALKALINE PHOSPHATASE 123 U/L (45-117); BILIRUBIN,TOTAL 0.3 mg/dL (0.2-1.0)
[2019-01-10 05:09] LABS: MD YES
[2019-01-10 05:11] LABS: ANISOCYTOSIS 1+; BANDS%(MANUAL) 11 % (0-7); LYMPH#(MANUAL) 0.33 x10^3/uL (1-3.4); LYMPHS% (MANUAL) 2 % (22-44); METAMYELOCYTES# (MANUAL) 0.33 x10^3/uL (0-0); METAMYELOCYTES% (MANUAL) 2 % (0-1); SEG#(MANUAL) 13.94 x10^3/uL (1.8-6.8); SEGS% (MANUAL) 85 % (42-75)
[2019-01-10 05:12] LABS: <PLATELET ESTIMATE> ADEQUATE; <PLT MORPHOLOGY> NORMAL PLT MORPH; HYPOCHROMIA 1+
[2019-01-10] MEDS: FLUCONAZOLE 200 MG/100 ML 100 ML IV SCH (05:13)
[2019-01-10] MEDS ORDERED: ALBUTEROL SULFATE 2.5 MG/3 ML NPPB PRN (05:30)
[2019-01-10] MEDS ORDERED: LACTATED RINGERS 1,000 ML IV SCH (08:30)
[2019-01-10] MEDS: PHENYTOIN 125 MG/5 ML ORAL SUSP GT SCH (09:47)
[2019-01-10] MEDS: DOCUSATE 50 MG/5 ML, 10ML UDC GT SCH (09:47)
[2019-01-10] MEDS: FAMOTIDINE 40 MG/5 ML ORAL SUSP GT SCH ×2 (09:47→20:05)
[2019-01-10] MEDS: BACLOFEN 10 MG TABLET GT SCH ×2 (09:47→20:04)
[2019-01-10] MEDS: SODIUM CHLORIDE FLUSH 10ML SYR IVF SCH ×2 (09:48→20:05)
[2019-01-10] MEDS: NYSTATIN TOPICAL POWDER 15GM TP SCH ×3 (09:48→20:05)
[2019-01-10] MEDS: VANCOMYCIN 50 MG/ML ORAL SUSP PO SCH ×3 (12:00→23:47)
[2019-01-10] MEDS: HYDROcodone/APAP 7.5-325MG/15ML UDC PO PRN (12:06)
[2019-01-10] MEDS: BROVANA 15 MCG INH SCH (19:51)
[2019-01-10] MEDS ORDERED: FAMOTIDINE 20 MG TABLET ONE (20:00)
[2019-01-10] MEDS: DIAZEPAM 5 MG TABLET GT PRN (23:44)
[2019-01-10] MEDS: ENOXAPARIN 40 MG/0.4 ML SQ SCH (23:44)
[2019-01-11] MEDS ORDERED: MIDAZOLAM 1 MG/ML, 5ML ONE
[2019-01-11] MEDS ORDERED: VECURONIUM 10 MG ONE
[2019-01-11] MEDS: INSULIN LISPRO 100 UNITS/ML, PEN SQ-INSULIN SCH ×4 (04:00→22:00)
[2019-01-11] MEDS: FLUCONAZOLE 200 MG/100 ML 100 ML IV SCH (04:20)
[2019-01-11] MEDS: VANCOMYCIN 50 MG/ML ORAL SUSP PO SCH ×3 (04:20→18:51)
[2019-01-11] MEDS: MEROPENEM 1 GM in SODIUM CHLORIDE 0.9% 100 ML IV SCH ×3 (04:20→19:52)
[2019-01-11 05:16] LABS: BASOPHILS % (AUTO) 0 % (0-1); EOSINOPHILS # (AUTO) 0.11 x10^3/uL (0-0.4); EOSINOPHILS % (AUTO) 1 % (1-7); LYMPHOCYTES % (AUTO) 2 % (22-44); MD NO; MEAN CORPUSCULAR HEMOGLOBIN 34.3 pg (27.5-34.5); MEAN CORPUSCULAR HGB CONC 33.1 g/dL (33.2-36.2); MEAN CORPUSCULAR VOLUME 103.6 fL (81-97); MONOCYTES # (AUTO) 0.48 x10^3/uL (0.2-0.8); MONOCYTES % (AUTO) 4 % (2-9); NEUTROPHILS # (AUTO) 11.52 x10^3/uL (1.8-6.8); NEUTROPHILS % (AUTO) 94 % (42-75); PLATELET COUNT 135 x10^3/uL (130-400); RED BLOOD COUNT 2.22 x10^6/uL (4.38-5.82); RED CELL DISTRIBUTION WIDTH 18.8 % (9.4-14.8)
[2019-01-11 05:21] LABS: ANION GAP 6 mmol/L (5-15); CALCIUM 6.6 mg/dL (8.5-10.1); CHLORIDE 109 mmol/L (98-107); CREATININE 0.39 mg/dL (0.7-1.3)
[2019-01-11 05:30] VITALS: BP 105/58
[2019-01-11] MEDS ORDERED: LACTATED RINGERS 1,000 ML IV SCH (08:30)
[2019-01-11] MEDS: BROVANA 15 MCG INH SCH ×2 (09:00→20:19)
[2019-01-11] MEDS ORDERED: FENTANYL PF 100 MCG/2ML ONE (09:35)
[2019-01-11] MEDS: BACLOFEN 10 MG TABLET GT SCH ×2 (11:31→20:59)
[2019-01-11] MEDS: SODIUM CHLORIDE FLUSH 10ML SYR IVF SCH ×2 (11:32→21:00)
[2019-01-11] MEDS: FAMOTIDINE 40 MG/5 ML ORAL SUSP GT SCH ×2 (11:32→19:52)
[2019-01-11] MEDS: PHENYTOIN 125 MG/5 ML ORAL SUSP GT SCH (11:32)
[2019-01-11] MEDS: DOCUSATE 50 MG/5 ML, 10ML UDC GT SCH (11:32)
[2019-01-11] MEDS: LINEZOLID PMX 600MG/300ML 300 ML IV SCH (11:33)
[2019-01-11] MEDS: NYSTATIN TOPICAL POWDER 15GM TP SCH ×3 (11:33→19:52)
[2019-01-11] MEDS ORDERED: FENTANYL PF 100 MCG/2ML IVPush ONE (12:00)
[2019-01-11] MEDS: ENOXAPARIN 40 MG/0.4 ML SQ SCH (22:21)
[2019-01-12] MEDS: VANCOMYCIN 50 MG/ML ORAL SUSP PO SCH ×4 (00:26→18:40)
[2019-01-12] MEDS: LINEZOLID PMX 600MG/300ML 300 ML IV SCH (00:26)
[2019-01-12] MEDS: FLUCONAZOLE 200 MG/100 ML 100 ML IV SCH (03:40)
[2019-01-12] MEDS: MEROPENEM 1 GM in SODIUM CHLORIDE 0.9% 100 ML IV SCH (03:40)
[2019-01-12 03:54] LABS: BASOPHILS # (AUTO) 0.01 x10^3/uL (0-0.1); BASOPHILS % (AUTO) 0 % (0-1); EOSINOPHILS # (AUTO) 0.39 x10^3/uL (0-0.4); EOSINOPHILS % (AUTO) 4 % (1-7); LYMPHOCYTES # (AUTO) 0.38 x10^3/uL (1-3.4); LYMPHOCYTES % (AUTO) 4 % (22-44); MD NO; MEAN CORPUSCULAR HEMOGLOBIN 35.3 pg (27.5-34.5); MEAN CORPUSCULAR HGB CONC 34.2 g/dL (33.2-36.2); MEAN CORPUSCULAR VOLUME 103.2 fL (81-97); MEAN PLATELET VOLUME 9.2 fL (7.4-10.4); MONOCYTES # (AUTO) 0.48 x10^3/uL (0.2-0.8); MONOCYTES % (AUTO) 4 % (2-9); NEUTROPHILS # (AUTO) 9.82 x10^3/uL (1.8-6.8); NEUTROPHILS % (AUTO) 89 % (42-75); PLATELET COUNT 128 x10^3/uL (130-400); RED BLOOD COUNT 2.29 x10^6/uL (4.38-5.82); RED CELL DISTRIBUTION WIDTH 18.9 % (9.4-14.8)
[2019-01-12 04:00] LABS: ANION GAP 2 mmol/L (5-15); CALCIUM 6.7 mg/dL (8.5-10.1); CHLORIDE 108 mmol/L (98-107); CREATININE 0.29 mg/dL (0.7-1.3); TRIGLYCERIDES 87 mg/dL (50-200)
[2019-01-12] MEDS: INSULIN LISPRO 100 UNITS/ML, PEN SQ-INSULIN SCH ×4 (04:00→22:00)
[2019-01-12] MEDS: NYSTATIN TOPICAL POWDER 15GM TP SCH ×3 (09:00→21:07)
[2019-01-12] MEDS: SODIUM CHLORIDE FLUSH 10ML SYR IVF SCH ×2 (09:00→22:24)
[2019-01-12] MEDS ORDERED: SODIUM PHOSPHATE IV ONE (09:00)
[2019-01-12] MEDS: BROVANA 15 MCG INH SCH ×2 (09:00→21:11)
[2019-01-12] MEDS ORDERED: SODIUM CHLORIDE 0.9% IV ONE (09:00)
[2019-01-12] MEDS: BACLOFEN 10 MG TABLET GT SCH ×2 (10:09→21:07)
[2019-01-12] MEDS: PHENYTOIN 125 MG/5 ML ORAL SUSP GT SCH (10:09)
[2019-01-12] MEDS: FAMOTIDINE 40 MG/5 ML ORAL SUSP GT SCH ×2 (10:09→21:07)
[2019-01-12] MEDS ORDERED: MEROPENEM 2 GM in SODIUM CHLORIDE 0.9% 100 ML IV SCH (14:00)
[2019-01-12] MEDS ORDERED: CEFTAZIDIME PMX 2 GM/50ML 50 ML IV SCH (15:00)
[2019-01-12] MEDS: HYDROcodone/APAP 7.5-325MG/15ML UDC PO PRN (17:09)
[2019-01-12] MEDS: CEFTAZIDIME 2,000 MG in SODIUM CHLORIDE 0.9% 50 ML IV SCH (23:08)
[2019-01-12] MEDS: ENOXAPARIN 40 MG/0.4 ML SQ SCH (23:10)
[2019-01-13] MEDS: VANCOMYCIN 50 MG/ML ORAL SUSP PO SCH ×4 (00:16→18:44)
[2019-01-13] MEDS: ALBUTEROL/IPRATROPIUM 2.5MG/0.5MG, 3 ML INLINE PRN ×2 (00:57→22:52)
[2019-01-13] MEDS: INSULIN LISPRO 100 UNITS/ML, PEN SQ-INSULIN SCH ×4 (04:00→22:00)
[2019-01-13] MEDS: HYDROcodone/APAP 7.5-325MG/15ML UDC PO PRN (05:04)
[2019-01-13 06:01] LABS: MEAN CORPUSCULAR HEMOGLOBIN 34.5 pg (27.5-34.5); MEAN CORPUSCULAR HGB CONC 33.6 g/dL (33.2-36.2); MEAN CORPUSCULAR VOLUME 102.8 fL (81-97); MEAN PLATELET VOLUME 9.5 fL (7.4-10.4); PLATELET COUNT 117 x10^3/uL (130-400); RED BLOOD COUNT 2.28 x10^6/uL (4.38-5.82)
[2019-01-13 06:02] LABS: ANION GAP 3 mmol/L (5-15); CALCIUM 6.7 mg/dL (8.5-10.1); CHLORIDE 110 mmol/L (98-107)
[2019-01-13 06:05] LABS: CREATININE < 0.15 mg/dL (0.7-1.3)
[2019-01-13 06:27] LABS: BASOPHILS % (AUTO) 0 % (0-1); EOSINOPHILS # (AUTO) 0.48 x10^3/uL (0-0.4); EOSINOPHILS % (AUTO) 9 % (1-7); LYMPHOCYTES # (AUTO) 0.52 x10^3/uL (1-3.4); LYMPHOCYTES % (AUTO) 10 % (22-44); MD SCAN; MONOCYTES % (AUTO) 8 % (2-9); NEUTROPHILS % (AUTO) 72 % (42-75)
[2019-01-13] MEDS: BROVANA 15 MCG INH SCH ×2 (07:24→19:00)
[2019-01-13] MEDS: CEFTAZIDIME 2,000 MG in SODIUM CHLORIDE 0.9% 50 ML IV SCH ×3 (08:02→23:58)
[2019-01-13] MEDS: PHENYTOIN 125 MG/5 ML ORAL SUSP GT SCH (08:56)
[2019-01-13] MEDS ORDERED: PHENERGAN HOMEMEDPO PRN (09:30)
[2019-01-13] MEDS ORDERED: FAMOTIDINE 20 MG TABLET ONE (10:26)
[2019-01-13] MEDS: BACLOFEN 10 MG TABLET GT SCH ×2 (10:34→21:46)
[2019-01-13] MEDS: DIAZEPAM 5 MG TABLET GT PRN (10:35)
[2019-01-13] MEDS: CHOLECALCIFEROL 400 UNITS/ML ORAL SOL PO SCH (10:35)
[2019-01-13] MEDS: FAMOTIDINE 40 MG/5 ML ORAL SUSP GT SCH ×2 (10:35→21:46)
[2019-01-13] MEDS: NYSTATIN TOPICAL POWDER 15GM TP SCH ×3 (10:35→21:48)
[2019-01-13] MEDS: SODIUM CHLORIDE FLUSH 10ML SYR IVF SCH ×2 (10:36→21:48)
[2019-01-13] MEDS: HYDROmorphone 2 MG/ML, 1ML IVPush PRN ×2 (14:26→22:40)
[2019-01-13] MEDS: KETOROLAC 30 MG/1 ML IV PRN (21:47)
[2019-01-13] MEDS: ENOXAPARIN 40 MG/0.4 ML SQ SCH (23:59)
[2019-01-14] MEDS: VANCOMYCIN 50 MG/ML ORAL SUSP PO SCH ×4 (00:53→17:38)
[2019-01-14] MEDS: HYDROmorphone 2 MG/ML, 1ML IVPush PRN ×3 (01:57→06:31)
[2019-01-14] MEDS: INSULIN LISPRO 100 UNITS/ML, PEN SQ-INSULIN SCH ×4 (04:00→22:00)
[2019-01-14 05:44] LABS: MEAN CORPUSCULAR HEMOGLOBIN 34.3 pg (27.5-34.5); MEAN CORPUSCULAR HGB CONC 33.3 g/dL (33.2-36.2); MEAN PLATELET VOLUME 9.8 fL (7.4-10.4); PLATELET COUNT 109 x10^3/uL (130-400); RED BLOOD COUNT 2.16 x10^6/uL (4.38-5.82); RED CELL DISTRIBUTION WIDTH 19.2 % (9.4-14.8)
[2019-01-14 06:11] LABS: MD YES
[2019-01-14 06:14] LABS: ANISOCYTOSIS 1+; BAND#(MANUAL) 0.03 x10^3/uL; BANDS%(MANUAL) 1 % (0-7); CHLORIDE 111 mmol/L (98-107); EOS#(MANUAL) 0.34 x10^3/uL (0.0-0.4); EOS% (MANUAL) 11 % (1-7); LYMPH#(MANUAL) 0.37 x10^3/uL (1-3.4); LYMPHS% (MANUAL) 12 % (22-44); MONOS#(MANUAL) 0.53 x10^3/uL (0.3-2.7); MONOS% (MANUAL) 17 % (2-9); POLYCHROMASIA 1+; SEG#(MANUAL) 1.83 x10^3/uL (1.8-6.8); SEGS% (MANUAL) 59 % (42-75)
[2019-01-14 06:15] LABS: <PLATELET ESTIMATE> DECREASED; LARGE PLATELETS 1+
[2019-01-14 06:18] LABS: ANION GAP 2 mmol/L (5-15); CALCIUM 6.7 mg/dL (8.5-10.1)
[2019-01-14 06:23] LABS: CREATININE < 0.15 mg/dL (0.7-1.3)
[2019-01-14] MEDS ORDERED: SODIUM BICARB 8.4%, 50ML SYRINGE IVPush STA (06:44)
[2019-01-14] MEDS ORDERED: SODIUM BICARB 8.4%, 50ML SYRINGE ONE (06:50)
[2019-01-14] MEDS ORDERED: INSULIN REGULAR 100 UNITS/ML, 3ML VIAL ONE (06:51)
[2019-01-14] MEDS ORDERED: INSULIN REGULAR 100 UNITS/ML, 3ML VIAL SQ-INSULIN ONE (07:00)
[2019-01-14] MEDS ORDERED: DEXTROSE 50%, 50ML SYRINGE IVPush ONE (07:00)
[2019-01-14] MEDS: CEFTAZIDIME 2,000 MG in SODIUM CHLORIDE 0.9% 50 ML IV SCH ×3 (08:58→23:23)
[2019-01-14] MEDS: FAMOTIDINE 40 MG/5 ML ORAL SUSP GT SCH ×2 (10:26→20:19)
[2019-01-14] MEDS: BACLOFEN 10 MG TABLET GT SCH ×2 (10:27→20:18)
[2019-01-14] MEDS: DIAZEPAM 5 MG TABLET GT PRN (10:27)
[2019-01-14] MEDS: PHENYTOIN 125 MG/5 ML ORAL SUSP GT SCH (10:27)
[2019-01-14] MEDS: HYDROcodone/APAP 7.5-325MG/15ML UDC PO PRN ×2 (10:28→20:18)
[2019-01-14] MEDS: SODIUM CHLORIDE FLUSH 10ML SYR IVF SCH ×2 (10:28→20:38)
[2019-01-14] MEDS: NYSTATIN TOPICAL POWDER 15GM TP SCH ×3 (10:28→20:38)
[2019-01-14] MEDS: DEXTROSE 50%, 50ML SYRINGE IVPush PRN (10:41)
[2019-01-14] MEDS: BROVANA 15 MCG INH SCH ×2 (10:50→18:38)
[2019-01-14] MEDS: CHOLECALCIFEROL 400 UNITS/ML ORAL SOL PO SCH (11:15)
[2019-01-14] MEDS: ENALAPRILAT 1.25 MG/ML, 2ML IVPush PRN (15:43)
[2019-01-14] MEDS ORDERED: FUROSEMIDE 20 MG/2 ML ONE (20:08)
[2019-01-14] MEDS ORDERED: FUROSEMIDE 20 MG/2 ML IV ONE (20:30)
[2019-01-14] MEDS: CARBAMIDE PEROXIDE EAR DROPS 6.5%, 15ML EACH EAR SCH (20:38)
[2019-01-15] MEDS: VANCOMYCIN 50 MG/ML ORAL SUSP PO SCH ×2 (00:43→05:43)
[2019-01-15] MEDS: INSULIN LISPRO 100 UNITS/ML, PEN SQ-INSULIN SCH (04:00)
[2019-01-15 04:29] LABS: MEAN CORPUSCULAR HGB CONC 33.8 g/dL (33.2-36.2); MEAN CORPUSCULAR VOLUME 103.6 fL (81-97); MEAN PLATELET VOLUME 9.5 fL (7.4-10.4); PLATELET COUNT 119 x10^3/uL (130-400); RED BLOOD COUNT 2.23 x10^6/uL (4.38-5.82); RED CELL DISTRIBUTION WIDTH 18.5 % (9.4-14.8)
[2019-01-15 04:39] LABS: ANION GAP 1 mmol/L (5-15); CHLORIDE 107 mmol/L (98-107); CREATININE 0.21 mg/dL (0.7-1.3); TRIGLYCERIDES 81 mg/dL (50-200)
[2019-01-15] MEDS ORDERED: FUROSEMIDE 20 MG/2 ML ONE (05:37)
[2019-01-15] MEDS: ENALAPRILAT 1.25 MG/ML, 2ML IVPush PRN ×2 (05:42→06:43)
[2019-01-15 05:45] LABS: BASOPHILS # (AUTO) 0.01 x10^3/uL (0-0.1); BASOPHILS % (AUTO) 0 % (0-1); EOSINOPHILS # (AUTO) 0.51 x10^3/uL (0-0.4); EOSINOPHILS % (AUTO) 7 % (1-7); LYMPHOCYTES # (AUTO) 0.47 x10^3/uL (1-3.4); LYMPHOCYTES % (AUTO) 6 % (22-44); MD SCAN; MONOCYTES # (AUTO) 0.78 x10^3/uL (0.2-0.8); MONOCYTES % (AUTO) 10 % (2-9); NEUTROPHILS # (AUTO) 6.15 x10^3/uL (1.8-6.8); NEUTROPHILS % (AUTO) 78 % (42-75)
[2019-01-15] MEDS ORDERED: FUROSEMIDE 20 MG/2 ML IV ONE (06:00)
[2019-01-15] MEDS ORDERED: SODIUM POLYSTYRENE SULFONATE ORAL SUSP PO ONE ×2 (07:00→13:30)
[2019-01-15] MEDS ORDERED: INSULIN REGULAR 100 UNITS/ML, 3ML VIAL IVPush ONE (07:00)
[2019-01-15] MEDS ORDERED: CALCIUM GLUCONATE 4.6 MEQ in SODIUM CHLORIDE 0.9% 50 ML IV ONE (07:00)
[2019-01-15] MEDS ORDERED: DEXTROSE 50%, 50ML SYRINGE IVPush ONE (07:00)
[2019-01-15] MEDS: BROVANA 15 MCG INH SCH (07:00)
[2019-01-15] MEDS: CEFTAZIDIME 2,000 MG in SODIUM CHLORIDE 0.9% 50 ML IV SCH ×3 (07:50→23:43)
[2019-01-15] MEDS: FAMOTIDINE 40 MG/5 ML ORAL SUSP GT SCH ×2 (09:22→21:56)
[2019-01-15] MEDS: PHENYTOIN 125 MG/5 ML ORAL SUSP GT SCH (09:22)
[2019-01-15] MEDS: HYDROcodone/APAP 7.5-325MG/15ML UDC PO PRN ×2 (09:22→19:26)
[2019-01-15] MEDS: BACLOFEN 10 MG TABLET GT SCH ×2 (09:22→21:56)
[2019-01-15] MEDS: NYSTATIN TOPICAL POWDER 15GM TP SCH ×3 (09:23→21:56)
[2019-01-15] MEDS: CARBAMIDE PEROXIDE EAR DROPS 6.5%, 15ML EACH EAR SCH ×2 (09:23→21:56)
[2019-01-15] MEDS: SODIUM CHLORIDE FLUSH 10ML SYR IVF SCH ×2 (09:23→21:58)
[2019-01-15] MEDS: FLUCONAZOLE 200 MG/100 ML 100 ML IV SCH (09:24)
[2019-01-15] MEDS ORDERED: LABETALOL 5MG/ML, 20ML IVPush PRN (10:00)
[2019-01-15] MEDS: CHOLECALCIFEROL 400 UNITS/ML ORAL SOL PO SCH (10:03)
[2019-01-15] MEDS: DEXTROSE 50%, 50ML SYRINGE IVPush PRN (10:03)
[2019-01-15 13:20] LABS: ANION GAP 1 mmol/L (5-15); CALCIUM 7.2 mg/dL (8.5-10.1); CHLORIDE 106 mmol/L (98-107); CREATININE 0.22 mg/dL (0.7-1.3)
[2019-01-15] MEDS: FUROSEMIDE 20 MG/2 ML IV SCH (15:46)
[2019-01-15] MEDS ORDERED: LABETALOL 5 MG/ML SYRINGE IVPush PRN (17:00)
[2019-01-15] MEDS ORDERED: FUROSEMIDE 40 MG/4 ML ONE (21:51)
[2019-01-16] MEDS: VANCOMYCIN 50 MG/ML ORAL SUSP PO SCH ×2 (01:01→11:25)
[2019-01-16] MEDS: HYDROcodone/APAP 7.5-325MG/15ML UDC PO PRN ×3 (03:35→19:33)
[2019-01-16 04:49] LABS: MEAN CORPUSCULAR HEMOGLOBIN 34.1 pg (27.5-34.5); MEAN CORPUSCULAR HGB CONC 33.5 g/dL (33.2-36.2); MEAN CORPUSCULAR VOLUME 101.8 fL (81-97); MEAN PLATELET VOLUME 9.5 fL (7.4-10.4); PLATELET COUNT 152 x10^3/uL (130-400); RED BLOOD COUNT 2.19 x10^6/uL (4.38-5.82); RED CELL DISTRIBUTION WIDTH 18.4 % (9.4-14.8)
[2019-01-16] MEDS: FUROSEMIDE 20 MG/2 ML IV SCH ×2 (05:00→16:10)
[2019-01-16 05:02] LABS: CALCIUM 7.3 mg/dL (8.5-10.1); CHLORIDE 105 mmol/L (98-107)
[2019-01-16 05:06] LABS: ANION GAP 1 mmol/L (5-15); CREATININE 0.18 mg/dL (0.7-1.3)
[2019-01-16] MEDS ORDERED: INSULIN REGULAR 100 UNITS/ML, 3ML VIAL IVPush ONE (05:30)
[2019-01-16] MEDS ORDERED: DEXTROSE 50%, 50ML SYRINGE IVPush ONE (05:30)
[2019-01-16] MEDS ORDERED: SODIUM POLYSTYRENE SULFONATE ORAL SUSP PO ONE ×3 (05:30→15:30)
[2019-01-16 05:47] LABS: MD YES
[2019-01-16 05:48] LABS: EOS#(MANUAL) 0.33 x10^3/uL (0.0-0.4); EOS% (MANUAL) 3 % (1-7); LYMPH#(MANUAL) 0.55 x10^3/uL (1-3.4); LYMPHS% (MANUAL) 5 % (22-44); NRBC % (MANUAL) 3 % (0-1)
[2019-01-16 05:49] LABS: ANISOCYTOSIS 1+; MONOS% (MANUAL) 11 % (2-9); SEG#(MANUAL) 8.83 x10^3/uL (1.8-6.8); SEGS% (MANUAL) 81 % (42-75)
[2019-01-16 05:50] LABS: POLYCHROMASIA 1+
[2019-01-16 05:51] LABS: <PLATELET ESTIMATE> ADEQUATE; LARGE PLATELETS 1+
[2019-01-16] MEDS ORDERED: SODIUM PHOSPHATE 10 MMOL in SODIUM CHLORIDE 0.9% 500 ML IV ONE (07:00)
[2019-01-16] MEDS ORDERED: FAMOTIDINE 20 MG TABLET ONE (08:28)
[2019-01-16] MEDS: BROVANA 15 MCG INH SCH (08:39)
[2019-01-16] MEDS: CEFTAZIDIME 2,000 MG in SODIUM CHLORIDE 0.9% 50 ML IV SCH ×2 (08:53→16:03)
[2019-01-16] MEDS: CARBAMIDE PEROXIDE EAR DROPS 6.5%, 15ML EACH EAR SCH ×2 (08:57→19:33)
[2019-01-16] MEDS: FAMOTIDINE 40 MG/5 ML ORAL SUSP GT SCH ×2 (09:03→19:33)
[2019-01-16] MEDS: PHENYTOIN 125 MG/5 ML ORAL SUSP GT SCH (09:05)
[2019-01-16] MEDS: BACLOFEN 10 MG TABLET GT SCH ×2 (09:05→19:33)
[2019-01-16] MEDS: NYSTATIN TOPICAL POWDER 15GM TP SCH ×3 (09:07→19:34)
[2019-01-16] MEDS: SODIUM CHLORIDE FLUSH 10ML SYR IVF SCH ×2 (09:07→19:35)
[2019-01-16 10:46] LABS: ANION GAP 2 mmol/L (5-15); CALCIUM 7.2 mg/dL (8.5-10.1); CHLORIDE 105 mmol/L (98-107)
[2019-01-16] MEDS: FLUCONAZOLE 200 MG/100 ML 100 ML IV SCH (10:46)
[2019-01-16 10:47] LABS: CREATININE 0.16 mg/dL (0.7-1.3)
--- NOTE | 2019-01-16 10:49 | NUR ---
01/16 TF GOAL: NEPRO @ 53ML/HR X 22 HR PER DAY, with hold 1 hour before and after dilantin
[2019-01-16] MEDS ORDERED: MIDAZOLAM 1 MG/ML, 5ML ONE (11:22)
[2019-01-16] MEDS ORDERED: HYDROmorphone 2 MG/ML, 1ML ONE (11:24)
[2019-01-16] MEDS ORDERED: MIDAZOLAM 1 MG/ML, 2ML IVPush ONE (11:30)
[2019-01-16] MEDS ORDERED: HYDROmorphone 1 MG/ML, 1ML INJ IV ONE (11:30)
[2019-01-16] MEDS: ENALAPRILAT 1.25 MG/ML, 2ML IVPush PRN (18:17)
[2019-01-16] MEDS: CHOLECALCIFEROL 400 UNITS/ML ORAL SOL PO SCH (19:44)
[2019-01-17] MEDS: VANCOMYCIN 50 MG/ML ORAL SUSP PO SCH ×3 (00:06→21:41)
[2019-01-17] MEDS: CEFTAZIDIME 2,000 MG in SODIUM CHLORIDE 0.9% 50 ML IV SCH ×4 (00:06→21:40)
[2019-01-17] MEDS: ENALAPRILAT 1.25 MG/ML, 2ML IVPush PRN (01:37)
[2019-01-17] MEDS: BROVANA 15 MCG INH SCH ×3 (01:50→23:38)
[2019-01-17] MEDS: FUROSEMIDE 20 MG/2 ML IV SCH ×3 (04:30→21:41)
[2019-01-17 05:00] LABS: ANION GAP 3 mmol/L (5-15); CALCIUM 7.2 mg/dL (8.5-10.1); CHLORIDE 105 mmol/L (98-107); CREATININE 0.18 mg/dL (0.7-1.3)
[2019-01-17 05:12] LABS: MEAN CORPUSCULAR HEMOGLOBIN 34.6 pg (27.5-34.5); MEAN CORPUSCULAR HGB CONC 33.7 g/dL (33.2-36.2); MEAN CORPUSCULAR VOLUME 102.8 fL (81-97); MEAN PLATELET VOLUME 8.7 fL (7.4-10.4); PLATELET COUNT 186 x10^3/uL (130-400); RED CELL DISTRIBUTION WIDTH 18.2 % (9.4-14.8)
[2019-01-17] MEDS: HYDROcodone/APAP 7.5-325MG/15ML UDC PO PRN (05:18)
[2019-01-17 05:46] LABS: MD YES
[2019-01-17 05:54] LABS: ANISOCYTOSIS 1+; BAND#(MANUAL) 0.09 x10^3/uL; BANDS%(MANUAL) 1 % (0-7); EOS#(MANUAL) 0.38 x10^3/uL (0.0-0.4); EOS% (MANUAL) 4 % (1-7); LYMPHS% (MANUAL) 16 % (22-44); METAMYELOCYTES# (MANUAL) 0.09 x10^3/uL (0-0); METAMYELOCYTES% (MANUAL) 1 % (0-1); MONOS#(MANUAL) 1.13 x10^3/uL (0.3-2.7); MONOS% (MANUAL) 12 % (2-9); MYELOCYTES# (MANUAL) 0.09 x10^3/uL (0-0); MYELOCYTES% (MANUAL) 1 % (0-0); POLYCHROMASIA 1+; SEG#(MANUAL) 6.11 x10^3/uL (1.8-6.8); SEGS% (MANUAL) 65 % (42-75)
[2019-01-17 05:55] LABS: <PLATELET ESTIMATE> ADEQUATE; LARGE PLATELETS 1+
[2019-01-17] MEDS: CARBAMIDE PEROXIDE EAR DROPS 6.5%, 15ML EACH EAR SCH ×2 (08:18→19:30)
[2019-01-17] MEDS: NYSTATIN TOPICAL POWDER 15GM TP SCH ×3 (08:19→21:40)
[2019-01-17] MEDS: PHENYTOIN 125 MG/5 ML ORAL SUSP GT SCH (08:19)
[2019-01-17] MEDS: SODIUM CHLORIDE FLUSH 10ML SYR IVF SCH ×2 (08:19→19:31)
[2019-01-17] MEDS: FAMOTIDINE 40 MG/5 ML ORAL SUSP GT SCH ×2 (08:19→19:31)
[2019-01-17] MEDS: BACLOFEN 10 MG TABLET GT SCH ×2 (08:19→19:31)
[2019-01-17] MEDS: CHOLECALCIFEROL 400 UNITS/ML ORAL SOL PO SCH (08:19)
[2019-01-17] MEDS: HYDROmorphone 2 MG/ML, 1ML IVPush PRN ×9 (08:57→21:40)
[2019-01-17] MEDS: FLUCONAZOLE 200 MG/100 ML 100 ML IV SCH (10:59)
[2019-01-17] MEDS: ALBUTEROL/IPRATROPIUM 2.5MG/0.5MG, 3 ML INLINE PRN (18:45)
[2019-01-18] MEDS: HYDROmorphone 2 MG/ML, 1ML IVPush PRN ×14 (00:14→23:27)
[2019-01-18] MEDS: CEFTAZIDIME 2,000 MG in SODIUM CHLORIDE 0.9% 50 ML IV SCH ×2 (07:43→16:00)
[2019-01-18] MEDS: CARBAMIDE PEROXIDE EAR DROPS 6.5%, 15ML EACH EAR SCH ×2 (07:43→21:00)
[2019-01-18] MEDS: PHENYTOIN 125 MG/5 ML ORAL SUSP GT SCH (07:43)
[2019-01-18] MEDS: FAMOTIDINE 40 MG/5 ML ORAL SUSP GT SCH ×2 (07:43→21:00)
[2019-01-18] MEDS: CHOLECALCIFEROL 400 UNITS/ML ORAL SOL PO SCH (07:44)
[2019-01-18] MEDS: NYSTATIN TOPICAL POWDER 15GM TP SCH ×3 (07:44→21:00)
[2019-01-18] MEDS: BROVANA 15 MCG INH SCH ×2 (09:00→21:00)
[2019-01-18] MEDS: BACLOFEN 10 MG TABLET GT SCH ×2 (09:00→21:00)
[2019-01-18] MEDS: SODIUM CHLORIDE FLUSH 10ML SYR IVF SCH ×2 (09:02→21:00)
[2019-01-18] MEDS: FLUCONAZOLE 200 MG/100 ML 100 ML IV SCH (10:00)
[2019-01-18] MEDS: HYDROmorphone 10 MG in SODIUM CHLORIDE 0.9% 245 ML IV PRN (11:18)
[2019-01-18] MEDS: VANCOMYCIN 50 MG/ML ORAL SUSP PO SCH (11:26)
[2019-01-18] MEDS: DIAZEPAM 5 MG TABLET GT PRN (15:49)
[2019-01-18] MEDS: FUROSEMIDE 20 MG/2 ML IV SCH (16:10)
[2019-01-19] MEDS: VANCOMYCIN 50 MG/ML ORAL SUSP PO SCH
[2019-01-19] MEDS: HYDROmorphone 2 MG/ML, 1ML IVPush PRN ×6 (00:35→12:24)
[2019-01-19] MEDS: HYDROmorphone 10 MG in SODIUM CHLORIDE 0.9% 245 ML IV PRN (02:54)
[2019-01-19 04:10] LABS: ANION GAP 10 mmol/L (5-15); CALCIUM 7.7 mg/dL (8.5-10.1); CHLORIDE 104 mmol/L (98-107)
[2019-01-19 04:11] LABS: CREATININE < 0.15 mg/dL (0.7-1.3)
[2019-01-19 04:12] LABS: MEAN CORPUSCULAR HGB CONC 33.5 g/dL (33.2-36.2); MEAN CORPUSCULAR VOLUME 104.3 fL (81-97); MEAN PLATELET VOLUME 8.1 fL (7.4-10.4); PLATELET COUNT 252 x10^3/uL (130-400); RED BLOOD COUNT 2.11 x10^6/uL (4.38-5.82)
[2019-01-19] MEDS: DEXTROSE 50%, 50ML SYRINGE IVPush PRN (04:22)
[2019-01-19] MEDS ORDERED: DEXTROSE 50%, 50ML SYRINGE IVPush ONE (04:30)
[2019-01-19] MEDS: FUROSEMIDE 20 MG/2 ML IV SCH (05:00)
[2019-01-19 05:45] LABS: BASOPHILS # (AUTO) 0.08 x10^3/uL (0-0.1); BASOPHILS % (AUTO) 1 % (0-1); EOSINOPHILS # (AUTO) 0.34 x10^3/uL (0-0.4); EOSINOPHILS % (AUTO) 3 % (1-7); LYMPHOCYTES # (AUTO) 0.79 x10^3/uL (1-3.4); LYMPHOCYTES % (AUTO) 7 % (22-44); MD SCAN; MONOCYTES # (AUTO) 1.79 x10^3/uL (0.2-0.8); MONOCYTES % (AUTO) 15 % (2-9); NEUTROPHILS # (AUTO) 8.77 x10^3/uL (1.8-6.8); NEUTROPHILS % (AUTO) 75 % (42-75)
[2019-01-19] MEDS: LIDOCAINE-MPF 1%, 2ML ENDO PRN ×2 (07:48→10:54)
[2019-01-19] MEDS: CEFTAZIDIME 2,000 MG in SODIUM CHLORIDE 0.9% 50 ML IV SCH ×2 (08:00)
[2019-01-19] MEDS: BACLOFEN 10 MG TABLET GT SCH (09:00)
[2019-01-19] MEDS: FAMOTIDINE 40 MG/5 ML ORAL SUSP GT SCH (09:00)
[2019-01-19] MEDS: CARBAMIDE PEROXIDE EAR DROPS 6.5%, 15ML EACH EAR SCH (09:00)
[2019-01-19] MEDS: CHOLECALCIFEROL 400 UNITS/ML ORAL SOL PO SCH (09:00)
[2019-01-19] MEDS: NYSTATIN TOPICAL POWDER 15GM TP SCH (09:00)
[2019-01-19] MEDS: PHENYTOIN 125 MG/5 ML ORAL SUSP GT SCH (09:00)
[2019-01-19] MEDS: FLUCONAZOLE 200 MG/100 ML 100 ML IV SCH (10:00)
[2019-01-19] MEDS: SODIUM CHLORIDE FLUSH 10ML SYR IVF SCH (10:39)
[2019-01-19] MEDS ORDERED: HYDROmorphone 10 MG in SODIUM CHLORIDE 0.9% 245 ML IVPB PRN (13:36)
[2019-01-19] MEDS ORDERED: HYDROmorphone 2 MG/ML, 1ML IVPush PRN (14:00)
[2019-01-19] MEDS ORDERED: HYDROmorphone 1 MG/ML, 1ML INJ IVPush PRN (14:00)
[2019-01-19] MEDS ORDERED: SCOPOLAMINE PATCH, 1.5MG PATCH.TD72 TD SCH (14:00)
[2019-01-19] MEDS ORDERED: ATROPINE OPHTH SOLN 1%, 2ML BC PRN (14:00)
[2019-01-19] MEDS ORDERED: LORazepam 2 MG/ML, 1ML IVPush PRN (14:00)
[2019-01-19] MEDS: LORazepam 2 MG/ML, 1ML IVPush PRN ×2 (17:17→18:13)
[2019-01-19] MEDS ORDERED: FENTANYL REMOVE PATCH NOTE XX SCH (18:00)
[2019-01-19] MEDS ORDERED: LORazepam 10 MG in SODIUM CHLORIDE 0.9% 245 ML IV PRN (18:00)
[2019-01-19] MEDS ORDERED: FENTANYL 25 MCG PATCH TD SCH (18:00)
[2019-01-19] MEDS ORDERED: SODIUM CHLORIDE 0.9% IVPB PRN ×2 (19:00→21:00)
[2019-01-19] MEDS ORDERED: HYDROMORPHONE IVPB PRN ×2 (19:00→21:00)
[2019-01-20] MEDS ORDERED: HYDROMORPHONE IVPB PRN (19:00)
[2019-01-20] MEDS ORDERED: SODIUM CHLORIDE 0.9% IVPB PRN (19:00)
== END 2019-01-19 22:53 | disposition expired | DRG 870 ==
LOC: ED 21:32 → EDIP 22:00 → CCU 01-09 00:01 → ICU 01-18 10:03 → CCU 01-19 19:41
PROVIDERS: ADMIT Family Medicine; ATTEND Family Medicine
PROC: 5A1955Z Respiratory Ventilation, Greater than 96 Consecutive Hours (ICD-10-PCS; principal; 2019-01-09)
PROC: 02HV33Z Insertion of Infusion Device into Superior Vena Cava, Percutaneous Approach (ICD-10-PCS; 2019-01-09)
PROC: B5181ZA Fluoroscopy of Superior Vena Cava using Low Osmolar Contrast, Guidance (ICD-10-PCS; 2019-01-09)
PROC: B548ZZA Ultrasonography of Superior Vena Cava, Guidance (ICD-10-PCS; 2019-01-09)
PROC: 0B998ZZ Drainage of Lingula Bronchus, Via Natural or Artificial Opening Endoscopic (ICD-10-PCS; 2019-01-11)
PROC: 0B9B8ZZ Drainage of Left Lower Lobe Bronchus, Via Natural or Artificial Opening Endoscopic (ICD-10-PCS; 2019-01-11)
PROC: 0BC98ZZ Extirpation of Matter from Lingula Bronchus, Via Natural or Artificial Opening Endoscopic (ICD-10-PCS; 2019-01-16)
PROC: 0BC88ZZ Extirpation of Matter from Left Upper Lobe Bronchus, Via Natural or Artificial Opening Endoscopic (ICD-10-PCS; 2019-01-16)
PROC: 0BC78ZZ Extirpation of Matter from Left Main Bronchus, Via Natural or Artificial Opening Endoscopic (ICD-10-PCS; 2019-01-16)
PROC: 0BCB8ZZ Extirpation of Matter from Left Lower Lobe Bronchus, Via Natural or Artificial Opening Endoscopic (ICD-10-PCS; 2019-01-16)
DX: A41.9 Sepsis, unspecified organism (principal); J96.21 Acute and chronic respiratory failure with hypoxia; G82.50 Quadriplegia, unspecified; E43 Unspecified severe protein-calorie malnutrition; J15.0 Pneumonia due to Klebsiella pneumoniae; J15.1 Pneumonia due to Pseudomonas; R65.21 Severe sepsis with septic shock; Z99.11 Dependence on respirator [ventilator] status; A04.72 Enterocolitis due to Clostridium difficile, not specified as recurrent; E87.2 Acidosis; J44.0 Chronic obstructive pulmonary disease with (acute) lower respiratory infection; J44.1 Chronic obstructive pulmonary disease with (acute) exacerbation; J95.851 Ventilator associated pneumonia; J98.19 Other pulmonary collapse; N39.0 Urinary tract infection, site not specified; B37.9 Candidiasis, unspecified; D63.8 Anemia in other chronic diseases classified elsewhere; D75.89 Other specified diseases of blood and blood-forming organs; E83.39 Other disorders of phosphorus metabolism; E83.42 Hypomagnesemia; E83.51 Hypocalcemia; E87.5 Hyperkalemia; E87.6 Hypokalemia; F41.9 Anxiety disorder, unspecified; G40.909 Epilepsy, unspecified, not intractable, without status epilepticus; L89.510 Pressure ulcer of right ankle, unstageable; L89.151 Pressure ulcer of sacral region, stage 1; I11.0 Hypertensive heart disease with heart failure; I50.9 Heart failure, unspecified; N32.89 Other specified disorders of bladder; Z66 Do not resuscitate; Z80.9 Family history of malignant neoplasm, unspecified; Z82.49 Family history of ischemic heart disease and other diseases of the circulatory system; Z86.19 Personal history of other infectious and parasitic diseases; Z88.1 Allergy status to other antibiotic agents; Z93.0 Tracheostomy status; Z93.1 Gastrostomy status; Z93.59 Other cystostomy status; Z99.81 Dependence on supplemental oxygen; Z68.21 Body mass index [BMI] 21.0-21.9, adult
CPT/HCPCS: 31622; 31624; 36415; 36556; 36600; 71045; 77001; 80048; 80053; 81001; 82330; 82533; 82803; 82962; 83605; 83690; 83735; 84100; 84132; 84145; 84439; 84443; 84478; 85025; 87040; 87070; 87077; 87081; 87086; 87102; 87107; 87184; 87186; 87205; 87324; 87400; 87493; 93005; 94002; 94003; 94640; 96361; 96374; G0378; J0610; J0713; J1170; J1650; J1815; J1885; J2020; J2060; J2185; J2250; J2405; J3010; J3370; J7613; J7620; P9041; C1751; J1450; J1940; J3475; J7030; J7040; J7050; J7120; P9045